=== PATIENT | female | born 1990 | race Two or more races ===

== ENCOUNTER 2017-06-23 19:04 | Emergency (ER) | payer MEDICAID ==
--- NOTE | 2017-06-23 19:55 | ER Document Report ---
ED Medical Screen (RME) - General Chief Complaint: Psych Problem Stated Complaint: SUICIDIAL IDEATION Time Seen by Provider: 06/23/17 19:50 Mode of Arrival: Ambulatory Information source: Patient TRAVEL OUTSIDE OF THE [place] IN LAST 30 DAYS: No - HPI Onset: Last week Onset/Duration: Gradual, Worse - TODAY Context: MUCH PSYCHOSOCIAL UPHEAVAL RE: CHILDREN, BEST FRIEND, ETC. Quality of pain: No pain Associated Symptoms: None Exacerbated by: Denies Relieved by: Denies Similar symptoms previously: Yes Recently seen / treated by doctor: No - Related Data Allergies/Adverse Reactions: Sulfa (Sulfonamide Antibiotics) Allergy (Verified 03/17/14 05:55) Hives Past Medical History - General Information source: Patient - Social History Chew tobacco use (# tins/day): No Frequency of alcohol use: Rare Drug Abuse: None Lives with: Homeless Family history: None - Past Medical History Cardiac Medical History: Reports: None Pulmonary Medical History: Reports: None Denies: Hx Tuberculosis EENT Medical History: Reports: None Neurological Medical History: Reports: None Endocrine Medical History: Reports: None Renal/ Medical History: Reports: Hx Kidney Stones - no stones, but cyst on kidney. Denies: Hx Peritoneal Dialysis Malignancy Medical History: Reports: None GI Medical History: Reports: None. Denies: Hx Gastroesophageal Reflux Disease, Hx Hiatal Hernia, Hx Ulcer Musculoskeltal Medical History: Reports None Psychiatric Medical History: Reports: Hx Anxiety, Hx Depression Past Surgical History: Reports: Hx Section. Denies: Hx Appendectomy, Hx Bowel Surgery, Hx Cholecystectomy, Hx Coronary Artery Bypass Graft, Hx Gastric Bypass Surgery, Hx Herniorrhaphy, Hx Hysterectomy, Hx Mastectomy, Hx Pacemaker, Hx Tonsillectomy, Hx Tubal Ligation - Immunizations Hx Diphtheria, Pertussis, Tetanus Vaccination: Yes Review of Systems - Review of Systems Constitutional: No symptoms reported EENT: No symptoms reported Cardiovascular: No symptoms reported Respiratory: No symptoms reported Gastrointestinal: No symptoms reported Genitourinary: No symptoms reported Female Genitourinary: Last menstrual period - 02/2017, - MAYBE Neurological/Psychological: See HPI Physical Exam - Vital signs Vitals: Temp Pulse Resp BP Pulse Ox 98.5 F 106 H 20 123/69 100 06/23/17 19:18 06/23/17 19:18 06/23/17 19:18 06/23/17 19:18 06/23/17 19:18 Interpretation: Tachycardic - General General appearance: Appears well In distress: None - HEENT Head: Normocephalic Eyes: Normal Conjunctiva: Normal Ears: Normal Nasal: Normal Mouth/Lips: Normal Mucous membranes: Normal Pharynx: Normal - Respiratory Respiratory status: No respiratory distress Breath sounds: Normal - Cardiovascular Rhythm: Regular Heart sounds: Normal auscultation Murmur: No - Abdominal Inspection: Normal Distension: No distension - Extremities General upper extremity: Normal inspection General lower extremity: Normal inspection - Neurological Neuro grossly intact: Yes Cognition: Normal Orientation: AAOx4 - Psychological Associated symptoms: Depressed - Skin Skin Temperature: Warm Skin Moisture: Dry Skin Color: Normal Skin Turgor: Elastic Course - Vital Signs Vital signs: Temp Pulse Resp BP Pulse Ox 98.5 F 106 H 20 123/69 100 06/23/17 19:18 06/23/17 19:18 06/23/17 19:18 06/23/17 19:18 06/23/17 19:18
[2017-06-23 20:06] LABS: ABSOLUTE BASOPHILS # (AUTO) 0.1 10^3/uL (0.0-0.2); ABSOLUTE EOSINOPHILS # (AUTO) 0.1 10^3/uL (0.0-0.6); ABSOLUTE LYMPHOCYTES (AUTO) 1.9 10^3/uL (0.5-4.7); ABSOLUTE MONOCYTES (AUTO) 0.6 10^3/uL (0.1-1.4); ABSOLUTE NEUT (AUTO) 4.4 10^3/uL (1.7-8.2); BASOPHILS % (AUTO) 0.8 % (0-2); EOSINOPHILS % (AUTO) 1.5 % (0-6); HEMATOCRIT 38.1 % (36.0-47.0); HGB HCT DIFFERENCE 0.9; LYMPHOCYTES % (AUTO) 26.4 % (13-45); MEAN CORPUSCULAR HEMOGLOBIN 31.2 pg (27.0-33.4); MEAN CORPUSCULAR HGB CONC 34.2 g/dL (32.0-36.0); MEAN CORPUSCULAR VOLUME 91 fl (80-97); RED BLOOD COUNT 4.18 10^6/uL (3.72-5.28); RED CELL DISTRIBUTION WIDTH 14.5 % (11.5-14.0); SEGMENTED NEUTROPHILS % (AUTO) 62.3 % (42-78); WHITE BLOOD COUNT 7.1 10^3/uL (4.0-10.5)
[2017-06-23 20:26] LABS: APPEARANCE,URINE SLIGHTLY-CLOUDY; BILIRUBIN,URINE NEGATIVE (NEGATIVE); GLUCOSE, URINE NEGATIVE (NEGATIVE); KETONES,URINE NEGATIVE (NEGATIVE); LEUKOCYTE ESTERASE,URINE NEGATIVE (NEGATIVE); NITRITE,URINE NEGATIVE (NEGATIVE); PROTEIN,URINE NEGATIVE (NEGATIVE); URINE SPECIFIC GRAVITY 1.028; UROBILINOGEN,URINE NEGATIVE mg/dL (<2.0)
[2017-06-23 20:32] LABS: ALANINE AMINOTRANSFERASE 23 U/L (9-52); ALBUMIN 4.2 g/dL (3.5-5.0); ALCOHOL < 10 mg/dL (NONE DETECTED); ALKALINE PHOSPHATASE 60 U/L (38-126); ANION GAP 10 (5-19); ASPARTATE AMINO TRANSFERASE 15 U/L (14-36); BILIRUBIN,DIRECT 0.3 mg/dL (0.0-0.4); BILIRUBIN,TOTAL 0.3 mg/dL (0.2-1.3); BLOOD UREA NITROGEN 5 mg/dL (7-20); CALCIUM 9.6 mg/dL (8.4-10.2); CARBON DIOXIDE 26 mmol/L (22-30); CHLORIDE 103 mmol/L (98-107); CREATININE RESULT 0.55 mg/dL (0.52-1.25); GLUCOSE 83 mg/dL (75-110); SODIUM 139.4 mmol/L (137-145); TOTAL PROTEIN 7.4 g/dL (6.3-8.2)
[2017-06-23 20:38] LABS: URINE BARBITURATES SCREEN NEGATIVE; URINE METHADONE SCREEN NEGATIVE; URINE OPIATES LOW UNCONFIRMED POSITIVE; URINE PHENCYCLIDINE SCREEN NEGATIVE
--- NOTE | 2017-06-23 23:14 | ER Document Report ---
ED General - General Chief Complaint: Psych Problem Stated Complaint: SUICIDIAL IDEATION Time Seen by Provider: 06/23/17 19:50 Mode of Arrival: Ambulatory Notes: Patient is a 27-year-old female without past medical history, has been diagnosed in the past with depression and anxiety who presents with concerns of increasing depression and passive suicidal ideation. Patient reports a long- standing history of passive suicidal ideation but states clearly "I could never actually kill myself. She has no prior attempts per her report. Relates multiple life stressors including homelessness, difficulty raising her children , and a history of prior alf time as stressors triggering her symptoms today. She has not noted anything improves her symptoms. She was referred here by [facility] after talking to her counselor. She denies any acute medical complaints although does note that she feels she is likely she has not had a menstrual period for at least 3 months. TRAVEL OUTSIDE OF THE [place] IN LAST 30 DAYS: No - Related Data Allergies/Adverse Reactions: Sulfa (Sulfonamide Antibiotics) Allergy (Verified 03/17/14 05:55) Hives Past Medical History - General Information source: Patient - Social History Smoking Status: Current Every Day Smoker Chew tobacco use (# tins/day): No Frequency of alcohol use: Rare Drug Abuse: None Lives with: Homeless Family History: Other - Cancer and hypertension Patient has suicidal ideation: Yes Patient has homicidal ideation: No - Past Medical History Cardiac Medical History: Reports: None Pulmonary Medical History: Reports: None Denies: Hx Tuberculosis EENT Medical History: Reports: None Neurological Medical History: Reports: None Endocrine Medical History: Reports: None Renal/ Medical History: Reports: Hx Kidney Stones - no stones, but cyst on kidney. Denies: Hx Peritoneal Dialysis Malignancy Medical History: Reports: None GI Medical History: Reports: None. Denies: Hx Gastroesophageal Reflux Disease, Hx Hiatal Hernia, Hx Ulcer Musculoskeltal Medical History: Reports None Psychiatric Medical History: Reports: Hx Anxiety, Hx Depression Past Surgical History: Reports: Hx Section. Denies: Hx Appendectomy, Hx Bowel Surgery, Hx Cholecystectomy, Hx Coronary Artery Bypass Graft, Hx Gastric Bypass Surgery, Hx Herniorrhaphy, Hx Hysterectomy, Hx Mastectomy, Hx Pacemaker, Hx Tonsillectomy, Hx Tubal Ligation - Immunizations Hx Diphtheria, Pertussis, Tetanus Vaccination: Yes Review of Systems - Review of Systems Notes: Constitutional: Negative for fever. HENT: Negative for sore throat. Eyes: Negative for visual changes. Cardiovascular: Negative for chest pain. Respiratory: Negative for shortness of breath. Gastrointestinal: Negative for abdominal pain, vomiting or diarrhea. Genitourinary: Negative for dysuria. Musculoskeletal: Negative for back pain. Skin: Negative for rash. Neurological: Negative for headaches, weakness or numbness. 10 point ROS negative except as marked above and in HPI. Physical Exam - Vital signs Vitals: Temp Pulse Resp BP Pulse Ox 98.5 F 106 H 20 123/69 100 06/23/17 19:18 06/23/17 19:18 06/23/17 19:18 06/23/17 19:18 06/23/17 19:18 Interpretation: Tachycardic Notes: PHYSICAL EXAMINATION: GENERAL: Well-appearing, well-nourished and in no acute distress. HEAD: Atraumatic, normocephalic. EYES: Pupils equal round and reactive to light, extraocular movements intact, sclera anicteric, conjunctiva are normal. ENT: nares patent, oropharynx clear without exudates. Moist mucous membranes. NECK: Normal range of motion, supple without lymphadenopathy LUNGS: Breath sounds clear to auscultation bilaterally and equal. No wheezes rales or rhonchi. HEART: Regular rate and rhythm without murmurs ABDOMEN: Soft, nontender, normoactive bowel sounds. No guarding, no rebound. No masses appreciated. EXTREMITIES: Normal range of motion, no pitting or edema. No cyanosis. NEUROLOGICAL: No focal neurological deficits. Moves all extremities spontaneously and on command. PSYCH: Tearful, depressed mood. Insight is appropriate. Judgment is fair. Denies suicidal or homicidal ideation. Does not be repaired to be responding to internal stimuli. SKIN: Warm, Dry, normal turgor, no rashes or lesions noted. Course - Re-evaluation Re-evalutation: 06/23/17 23:10 Patient presents with increased depression, anxiety, intermittent passive suicidal ideation although she states very clearly "I could never actually follow through with it". Patient does follow with [facility] [facility] and was referred to the emergency department for psychiatric evaluation based on what she spoke to her counselor about today. Patient presents as depressed, tearful but with excellent insight and judgment. She notes her children are preserving factors that would preclude her from ever harming herself in any serious way. She does not meet involuntary commitment criteria although she has requested to stay and be evaluated psychiatry in the morning which I believe is appropriate. She has no acute medical concerns. 06/24/17 02:48 Patient's laboratories are normal with the exception of a positive test which patient reports that she was anticipating as she has not had a menstrual period for at least 3 months. There is no indication to obtain ultrasound here in the emergency department as she has no abdominal pain vaginal bleeding or discharge. She has been informed of this positive test and the need for OB follow-up. - Vital Signs Vital signs: Temp Pulse Resp BP Pulse Ox 98.5 F 106 H 20 123/69 100 06/23/17 19:18 06/23/17 19:18 06/23/17 19:18 06/23/17 19:18 06/23/17 19:18 - Laboratory Result Diagrams: 06/23/17 19:50 06/23/17 19:50 Laboratory results interpreted by me: 06/23/17 06/23/17 06/23/17 19:24 19:24 19:50 RDW 14.5 H BUN Urine Ascorbic Acid 40 H Urine HCG, Qual POSITIVE H Salicylates Acetaminophen 06/23/17 19:50 RDW BUN 5 L Urine Ascorbic Acid Urine HCG, Qual Salicylates < 1.0 L Acetaminophen < 10 L - EKG Interpretation by Me Additional EKG results interpreted by me: 06/24/17 02:50 Normal sinus rhythm. Rate 91. No ST elevations or depressions. QTC is 424.
--- NOTE | 2017-06-24 14:10 | ER Document Report ---
Addendum entered and electronically signed by SULEIMAN PINTO LCSWA 06/26/17 13: 45: ED Psych Disorder / Suicide - General Chief Complaint: Psych Problem Stated Complaint: SUICIDIAL IDEATION Time Seen by Provider: 06/23/17 19:50 Mode of Arrival: Ambulatory TRAVEL OUTSIDE OF THE [place] IN LAST 30 DAYS: No - HPI Notes: Patient states that she has not been to the doctor yet for her however in the [facility]. She thinks she has to go to the health department first before she can go to [facility]. He states her aunt is willing to allow her to stay with her. Patient's Aunt, Margaret states she is willing to be part of the discharge plan. She confirms the patient will not have access to either weapons or medications. She states that she does have a concealed carry however her gun is in the face patient does not have access by either he nor code. She continued disclosed that she is on pain medication and has always had a lot things up because of the patient's substance abuse history she states the patient is welcome to stay with her however she will notify the patient's therapist immediately if she feels the patient is not following through. Impression\\plan: Patient is recommended for rescind of IVC and is considered psychiatrically clear for discharge. Patient no longer meets IVC criteria per [place] GS 122C. Patient's aunt agrees to be part of discharge plan. Patient is to have no access to weapons or medications. patient recommended to continue outpatient substance abuse treatment through [facility]. Patient is also recommended for therapeutic intervention to include behavioral therapy. - Related Data Allergies/Adverse Reactions: Sulfa (Sulfonamide Antibiotics) Allergy (Verified 03/17/14 05:55) Hives Discharge - Discharge Clinical Impression: Substance abuse, 12 weeks gestation of Depression Qualifiers: Depression Type: unspecified Qualified Code(s): F32.9 - Major depressive disorder, single episode, unspecified Condition: Stable Disposition: HOME, SELF-CARE Additional Instructions: NARCOTIC / OPIOD ABUSE: Narcotics and opiods are pain-relieving drugs that are often abused. They are addicting. Narcotics cause euphoria, but it often takes increasing amounts to "feel good" and avoid withdrawal symptoms. Overdose of narcotics causes small pupils, coma, and decreased breathing. It's a common cause of . Purity of street narcotics is unpredictable. Injection of narcotics is risky for abscesses, endocarditis (heart infection), pneumonia, and AIDS. Withdrawal from narcotics causes goose bumps, watery mouth, sweating, nasal congestion, muscle aches, abdominal cramps, vomiting, and diarrhea. There 's often restlessness and confusion. Treatment programs are available, but you must make the decision to quit. Medication (such as clonidine) can be prescribed to control the symptoms of withdrawal. AMPHETAMINE / METHAMPHETAMINE ABUSE: Amphetamines are addicting stimulants. Amphetamines overstimulate the nervous system and give a false feeling of power and mastery. These drugs may be obtained as prescription pills for weight loss, narcolepsy, or attention- deficit disorder. More often they're bought as an illegal street drug, methamphetamine (crank, crystal, speed). Using amphetamines repeatedly can lead to serious medical problems including malnutrition, severe depression, and paranoia. It can take increasing amounts to feel good. Eventually, there will be a "burn out." When you go off amphetamines there is a period of depression that may last for weeks or even months. High doses of amphetamines can cause seizures, confusion, hallucinations, delusions, high blood pressure, muscle damage, heart damage, or sudden . Many times these deadly complications occur even with "normal" doses. Injection of amphetamines is risky for developing abscesses, endocarditis ( heart infection), pneumonia, and AIDS. Withdrawal from amphetamines often causes anxiety, depression, and drug cravings. Some users become paranoid and psychotic. There may be cramps, nausea , and vomiting. Many treatment programs are available, but you must make the decision to quit. Medication can be prescribed to control the symptoms of amphetamine toxicity (beta blockers or benzodiazepines). Withdrawal symptoms may require tranquilizers. DEPRESSION: Your evaluation reveals that you have mental depression. While symptoms may be vague, they often include disturbance of sleep, fatigue, loss of appetite , and general loss of interest in life. While depression may be a side effect of drugs, or a reaction to a major change in your life, many cases have no known cause. If depression is acute, and related to a major loss in your life, you can expect it to clear completely with time. If you have been depressed a long time , are prone to repeated bouts of depression or low mood, or have been thinking of suicide, get help. Depression can be treated with anti-depressant medication and counselling. Long-term depression will often take a few weeks to clear, even with appropriate medication. Follow-up care is important. SUICIDAL IDEATION: Suicidal ideation is a common medical term for thoughts about suicide, which may be as detailed as a formulated plan, without the suicidal act itself. Although most people who undergo suicidal ideation do not commit suicide, some go on to make suicide attempts. The range of suicidal ideation varies greatly from fleeting to detailed planning, role playing, and unsuccessful attempts. While thoughts about suicide are common, most people do not carry out serious actions to commit suicide. Based upon your evaluation and discussion with you, we do not believe you are currently at risk to act upon your thoughts of suicide. You have agreed to return to the Emergency Department, at any time , if you feel inclined to act upon your suicidal thoughts. FOLLOW-UP CARE: Please continue to follow-up with your substance abuse treatment through [facility]. It is also recommended to follow-up with therapeutic services for behavioral therapy; please contact [facility] within 3-5 days to set up appointment. Please follow-up with the health department tomorrow morning at 8 AM. if you experience worsening or a significant change in your symptoms, notify the physician immediately or return to the Emergency Department at any time for re-evaluation. Referrals: [facility] [Outside] - Follow up in 3-5 days Addendum entered and electronically signed by GURMEET FELIPE LPC 06/25/17 13: 29: ED Psych Disorder / Suicide - General Chief Complaint: Psych Problem Stated Complaint: SUICIDIAL IDEATION Time Seen by Provider: 06/23/17 19:50 Mode of Arrival: Ambulatory TRAVEL OUTSIDE OF THE [place] IN LAST 30 DAYS: No - HPI Notes: Conducted check in with patient who is a 27 year old 12 week female who is under IVC for SI. Patient today states she is no longer suicidal, but is tearful etc. Patient states she presented to her group session at [facility], and asked to speak with an individual therapist due to SI. Patient states she disclosed the SI and her therapist prompted her to present to the ER, and also to find someone to care for her kids or else dss would take them. Patient states that is why she signed the POA to her aunt. Patient states she, her boyfriend, and their children were residing with a friend's family; however, she has since learned since being admitted to the ER, that her family has gone to that home and removed all of her belongings. Patient states her boyfriend did the same. She states she has not talked to the regional owner operator truck driver of the home and is unsure of why she is not welcomed there. Patient states she wants to go home and wants to be with her children. Patient denies SI/HI. Patient does provide verbal consent to speak with her aunt. Patient's Aunt, Margaret states the patient is "very, very, very depressed and her life revolves around her baby daddy." Aunt reports the patient 's mother left and has limited supports. She states every time the baby daddy leaves to go do something, she wants to harm herself. Aunt states the patient is able to come stay there, but the boyfriend is not. Aunt reports the patient has threatened suicide numerous times, each time related to the boyfriend, and the family is "over it." Patient is A&O. Mood is labile wit mostly tearful affect. Patient denies SI.HI. Patient denies A/V H; delusions not noted. Thought processes were guarded. Conversational speech was WNL. Intellectual abilities were estimated within average range. Attention and focus were fair. Insight, judgment, and impulse control were poor. 296.32 Major Depression, recurrent, moderate polysubstance abuse; with resent relapse Plan: Patient is recommended for IVC and placement at 24 hour inpatient facility. Patient has history of previous suicide attempt and disclosed attempting night. Patient has made arrangements for her children; providing written power of deputy county attorney to her aunt and requested her aunt to care for her children. Patient is tearful and labile. Patient has altered her story in regards to her boyfriend and etiology of her SI, thus causing concern for her judgment and decision making ability (impulsive) and the safety of her and her children. Dr. Wang was consulted on the care and management of this patient; attending physician is in agreement with recommendations and disposition. - Related Data Allergies/Adverse Reactions: Sulfa (Sulfonamide Antibiotics) Allergy (Verified 03/17/14 05:55) Hives Original Note: ED Psych Disorder / Suicide <MICHEAL FELIPEBETH - Last Filed: 06/25/17 12:54> - General Mode of Arrival: Ambulatory TRAVEL OUTSIDE OF THE [place] IN LAST 30 DAYS: No <SULEIMAN PINTO - Last Filed: 06/26/17 13:29> <KAVON JOHN - Last Filed: 06/26/17 13:59> - General Chief Complaint: Psych Problem Stated Complaint: SUICIDIAL IDEATION Time Seen by Provider: 06/23/17 19:50 - HPI Notes: Patient is a 27-year-old female without past medical history, has been diagnosed in the past with depression and anxiety who presents with concerns of increasing depression and passive suicidal ideation. Patient reports a long- standing history of passive suicidal ideation but states clearly "I could never actually kill myself." She has no prior attempts per her report. Chart review, Patient disclosed to intake staff: Pt. reports SI, tried to inject air into her veins last night, used to be IV drug user. Pt. reports emotional problems with boyfriend. Pt. has tried suicide in the past, has DX of anxiety and depression not taking any meds. Clinician conducted Evaluation 06/24/2017: Patient disclosed that she was at her group meeting at [facility] and requested to speak with a therapist individually. She continued disclosed that she has been depressed and having suicidal thoughts lately. Patient states her significant other and her are currently arguing. She continued to state that she did have a relapse a couple of days ago in her substance abuse treatment. Patient states that she is always had suicidal ideation in that happens so frequently that her "family does not de la garza over" to her anymore when she says it. She states it is "like the cry alvarez thing but I really am depressed and miserable." Patient denies having a plan stating "I would never do it." She states she is too scared to leave and not come back patient continues states that she is concerned about leaving her children. States "I am sad I need someone to reassure me everything is going to be okay." Patient past suicidal attempts to clinician however when asked again patient states she took caffeine pills in 2013 and has thought about cutting when she was a teenager but denies ever doing this. Patient disclosed she provided a temporary power of deputy county attorney to her aunt last night; the patient states it is for the custody of 3 children. Patient was alert and oriented x4. Mood was crying and severely depressed. She denied suicidal / homicidal ideation, intent or plan; however, it is noted the patient has planed and executed plan for care of her 3 children. She denied symptoms of psychosis and no delusions were present. Thought processes were organized, linear and rational. Conversational speech was within normal limits for rate, tone, and prosody. Intellectual abilities were estimated within normal range. Memory, recent and remote were within normal limits. Attention and concentration were within normal limits. Insight, judgment, and impulse control were poor. 296.32 Major Depression, recurrent, moderate polysubstance abuse; with resent relapse Plan: Patient is recommended for IVC and placement at 24 hour inpatient facility. Patient has history of previous suicide attempt and disclosed attempting last night. Patient has made arrangements for her children; providing written power of deputy county attorney to her aunt and requested her aunt to care for her children. Dr. Wang was consulted on the care and management of this patient; attending physician is in agreement with recommendations and disposition. (SULEIMAN PINTO) - Related Data Allergies/Adverse Reactions: Sulfa (Sulfonamide Antibiotics) Allergy (Verified 03/17/14 05:55) Hives Past Medical History - General Information source: Patient - Social History Smoking Status: Current Every Day Smoker Chew tobacco use (# tins/day): No Frequency of alcohol use: Rare Drug Abuse: None Lives with: Homeless Family History: Other - Cancer and hypertension Patient has suicidal ideation: Yes Patient has homicidal ideation: No - Past Medical History Cardiac Medical History: Reports: None Pulmonary Medical History: Reports: None Denies: Hx Tuberculosis EENT Medical History: Reports: None Neurological Medical History: Reports: None Endocrine Medical History: Reports: None Renal/ Medical History: Reports: Hx Kidney Stones - no stones, but cyst on kidney. Denies: Hx Peritoneal Dialysis Malignancy Medical History: Reports: None GI Medical History: Reports: None. Denies: Hx Gastroesophageal Reflux Disease, Hx Hiatal Hernia, Hx Ulcer Musculoskeltal Medical History: Reports None Psychiatric Medical History: Reports: Hx Anxiety, Hx Depression Past Surgical History: Reports: Hx Section. Denies: Hx Appendectomy, Hx Bowel Surgery, Hx Cholecystectomy, Hx Coronary Artery Bypass Graft, Hx Gastric Bypass Surgery, Hx Herniorrhaphy, Hx Hysterectomy, Hx Mastectomy, Hx Pacemaker, Hx Tonsillectomy, Hx Tubal Ligation - Immunizations Hx Diphtheria, Pertussis, Tetanus Vaccination: Yes <SULEIMAN PINTO - Last Filed: 06/26/17 13:29> Course <GURMEET FELIPE - Last Filed: 06/25/17 12:54> - Laboratory Result Diagrams: 06/23/17 19:50 06/23/17 19:50 <SULEIMAN PINTO - Last Filed: 06/26/17 13:29> - Laboratory Result Diagrams: 06/23/17 19:50 06/23/17 19:50 <KAVON JOHN - Last Filed: 06/26/17 13:59> - Re-evaluation Re-evalutation: 06/26/17 13:58 Patient has had the IVC rescinded. Patient is no longer suicidal and no longer meets criteria for commitment. Patient is going to go home with aunt and aunt has agreed to allow patient to live with her and will assist in the patient's care and follow-up. (KAVON JOHN) - Vital Signs Vital signs: Temp Pulse Resp BP Pulse Ox 97.9 F 89 16 111/61 99 06/26/17 08:25 06/26/17 08:25 06/26/17 08:25 06/26/17 08:25 06/26/17 08:25 - Laboratory Laboratory results interpreted by me: 06/23/17 06/23/17 06/23/17 19:24 19:24 19:50 RDW 14.5 H BUN Urine Ascorbic Acid 40 H Urine HCG, Qual POSITIVE H Salicylates Acetaminophen 06/23/17 19:50 RDW BUN 5 L Urine Ascorbic Acid Urine HCG, Qual Salicylates < 1.0 L Acetaminophen < 10 L Discharge <GURMEET FELIPE - Last Filed: 06/25/17 12:54> <SULEIMAN PINTO - Last Filed: 06/26/17 13:29> <KAVON JOHN - Last Filed: 06/26/17 13:59> - Discharge Clinical Impression: Substance abuse, 12 weeks gestation of Depression Qualifiers: Depression Type: unspecified Qualified Code(s): F32.9 - Major depressive disorder, single episode, unspecified Condition: Stable Disposition: HOME, SELF-CARE Additional Instructions: NARCOTIC / OPIOD ABUSE: Narcotics and opiods are pain-relieving drugs that are often abused. They are addicting. Narcotics cause euphoria, but it often takes increasing amounts to "feel good" and avoid withdrawal symptoms. Overdose of narcotics causes small pupils, coma, and decreased breathing. It's a common cause of . Purity of street narcotics is unpredictable. Injection of narcotics is risky for abscesses, endocarditis (heart infection), pneumonia, and AIDS. Withdrawal from narcotics causes goose bumps, watery mouth, sweating, nasal congestion, muscle aches, abdominal cramps, vomiting, and diarrhea. There 's often restlessness and confusion. Treatment programs are available, but you must make the decision to quit. Medication (such as clonidine) can be prescribed to control the symptoms of withdrawal. AMPHETAMINE / METHAMPHETAMINE ABUSE: Amphetamines are addicting stimulants. Amphetamines overstimulate the nervous system and give a false feeling of power and mastery. These drugs may be obtained as prescription pills for weight loss, narcolepsy, or attention- deficit disorder. More often they're bought as an illegal street drug, methamphetamine (crank, crystal, speed). Using amphetamines repeatedly can lead to serious medical problems including malnutrition, severe depression, and paranoia. It can take increasing amounts to feel good. Eventually, there will be a "burn out." When you go off amphetamines there is a period of depression that may last for weeks or even months. High doses of amphetamines can cause seizures, confusion, hallucinations, delusions, high blood pressure, muscle damage, heart damage, or sudden . Many times these deadly complications occur even with "normal" doses. Injection of amphetamines is risky for developing abscesses, endocarditis ( heart infection), pneumonia, and AIDS. Withdrawal from amphetamines often causes anxiety, depression, and drug cravings. Some users become paranoid and psychotic. There may be cramps, nausea , and vomiting. Many treatment programs are available, but you must make the decision to quit. Medication can be prescribed to control the symptoms of amphetamine toxicity (beta blockers or benzodiazepines). Withdrawal symptoms may require tranquilizers. DEPRESSION: Your evaluation reveals that you have mental depression. While symptoms may be vague, they often include disturbance of sleep, fatigue, loss of appetite , and general loss of interest in life. While depression may be a side effect of drugs, or a reaction to a major change in your life, many cases have no known cause. If depression is acute, and related to a major loss in your life, you can expect it to clear completely with time. If you have been depressed a long time , are prone to repeated bouts of depression or low mood, or have been thinking of suicide, get help. Depression can be treated with anti-depressant medication and counselling. Long-term depression will often take a few weeks to clear, even with appropriate medication. Follow-up care is important. SUICIDAL IDEATION: Suicidal ideation is a common medical term for thoughts about suicide, which may be as detailed as a formulated plan, without the suicidal act itself. Although most people who undergo suicidal ideation do not commit suicide, some go on to make suicide attempts. The range of suicidal ideation varies greatly from fleeting to detailed planning, role playing, and unsuccessful attempts. While thoughts about suicide are common, most people do not carry out serious actions to commit suicide. Based upon your evaluation and discussion with you, we do not believe you are currently at risk to act upon your thoughts of suicide. You have agreed to return to the Emergency Department, at any time , if you feel inclined to act upon your suicidal thoughts. FOLLOW-UP CARE: Please continue to follow-up with your substance abuse treatment through [facility]. It is also recommended to follow-up with therapeutic services for behavioral therapy; please contact [facility] within 3-5 days to set up appointment. Please follow-up with the health department tomorrow morning at 8 AM. if you experience worsening or a significant change in your symptoms, notify the physician immediately or return to the Emergency Department at any time for re-evaluation. Referrals: [facility] [Outside] - Follow up in 3-5 days Discharge <GURMEET FELIPE - Last Filed: 06/25/17 12:54> <SULEIMAN PINTO - Last Filed: 06/26/17 13:29> <KAVON JOHN - Last Filed: 06/26/17 13:59> - Discharge Clinical Impression: Substance abuse, 12 weeks gestation of Depression Qualifiers: Depression Type: unspecified Qualified Code(s): F32.9 - Major depressive disorder, single episode, unspecified Condition: Stable Disposition: HOME, SELF-CARE Additional Instructions: NARCOTIC / OPIOD ABUSE: Narcotics and opiods are pain-relieving drugs that are often abused. They are addicting. Narcotics cause euphoria, but it often takes increasing amounts to "feel good" and avoid withdrawal symptoms. Overdose of narcotics causes small pupils, coma, and decreased breathing. It's a common cause of . Purity of street narcotics is unpredictable. Injection of narcotics is risky for abscesses, endocarditis (heart infection), pneumonia, and AIDS. Withdrawal from narcotics causes goose bumps, watery mouth, sweating, nasal congestion, muscle aches, abdominal cramps, vomiting, and diarrhea. There 's often restlessness and confusion. Treatment programs are available, but you must make the decision to quit. Medication (such as clonidine) can be prescribed to control the symptoms of withdrawal. AMPHETAMINE / METHAMPHETAMINE ABUSE: Amphetamines are addicting stimulants. Amphetamines overstimulate the nervous system and give a false feeling of power and mastery. These drugs may be obtained as prescription pills for weight loss, narcolepsy, or attention- deficit disorder. More often they're bought as an illegal street drug, methamphetamine (crank, crystal, speed). Using amphetamines repeatedly can lead to serious medical problems including malnutrition, severe depression, and paranoia. It can take increasing amounts to feel good. Eventually, there will be a "burn out." When you go off amphetamines there is a period of depression that may last for weeks or even months. High doses of amphetamines can cause seizures, confusion, hallucinations, delusions, high blood pressure, muscle damage, heart damage, or sudden . Many times these deadly complications occur even with "normal" doses. Injection of amphetamines is risky for developing abscesses, endocarditis ( heart infection), pneumonia, and AIDS. Withdrawal from amphetamines often causes anxiety, depression, and drug cravings. Some users become paranoid and psychotic. There may be cramps, nausea , and vomiting. Many treatment programs are available, but you must make the decision to quit. Medication can be prescribed to control the symptoms of amphetamine toxicity (beta blockers or benzodiazepines). Withdrawal symptoms may require tranquilizers. DEPRESSION: Your evaluation reveals that you have mental depression. While symptoms may be vague, they often include disturbance of sleep, fatigue, loss of appetite , and general loss of interest in life. While depression may be a side effect of drugs, or a reaction to a major change in your life, many cases have no known cause. If depression is acute, and related to a major loss in your life, you can expect it to clear completely with time. If you have been depressed a long time , are prone to repeated bouts of depression or low mood, or have been thinking of suicide, get help. Depression can be treated with anti-depressant medication and counselling. Long-term depression will often take a few weeks to clear, even with appropriate medication. Follow-up care is important. SUICIDAL IDEATION: Suicidal ideation is a common medical term for thoughts about suicide, which may be as detailed as a formulated plan, without the suicidal act itself. Although most people who undergo suicidal ideation do not commit suicide, some go on to make suicide attempts. The range of suicidal ideation varies greatly from fleeting to detailed planning, role playing, and unsuccessful attempts. While thoughts about suicide are common, most people do not carry out serious actions to commit suicide. Based upon your evaluation and discussion with you, we do not believe you are currently at risk to act upon your thoughts of suicide. You have agreed to return to the Emergency Department, at any time , if you feel inclined to act upon your suicidal thoughts. FOLLOW-UP CARE: Please continue to follow-up with your substance abuse treatment through [facility]. It is also recommended to follow-up with therapeutic services for behavioral therapy; please contact [facility] within 3-5 days to set up appointment. Please follow-up with the health department tomorrow morning at 8 AM. if you experience worsening or a significant change in your symptoms, notify the physician immediately or return to the Emergency Department at any time for re-evaluation. Referrals: [facility] [Outside] - Follow up in 3-5 days
--- NOTE | 2017-06-24 15:19 | EKG REPORT ---
SEVERITY:- NORMAL ECG - SINUS RHYTHM : Confirmed by: Lauren Soto MD 24-Jun-2017 15:18:00
--- NOTE | 2017-06-24 20:45 | RADIOLOGY REPORT (SQ) ---
EXAM DESCRIPTION: U/S OB TRANSVAGINAL W/O DOP COMPLETED DATE/TIME: 06/24/2017 8:23 pm REASON FOR STUDY: confirmation positive preg COMPARISON: None. TECHNIQUE: Transvaginal static and realtime grayscale images acquired of the pelvis. Additional aide cted spectral and color Doppler images recorded. All images stored on PACs. bHCG: Not available. LIMITATIONS: None. FINDINGS: FETUS: Living intrauterine . EGA: 12 WEEKS, 2 DAYS STEVEN: 01/04/2018 FHR: 152 beats per minute. SUBCHORIONIC BLEED: NO SIZE OF BLEED: Not applicable. UTERUS: No masses. No anomalies. CERVICAL LENGTH: 4.2 CM Closed. RIGHT ADNEXA: Ovary not identified. No adnexal free fluid. No adnexal masses. LEFT ADNEXA: Ovary not identified. No adnexal free fluid. No adnexal masses. FREE FLUID: None. OTHER: No other significant finding. IMPRESSION: LIVING INTRAUTERINE . EGA 12 WEEKS, 2 DAYS Trimester of : First - 0 to 13 weeks. TECHNICAL DOCUMENTATION: JOB ID: [id number] [employer]- All Rights Reserved
[2017-06-24] MEDS: PRENATAL VITAMIN W-O CA NO5/FE FUMARATE/FA CAPSULE PO SCH (21:20)
--- NOTE | 2017-06-25 10:11 | ER Document Report ---
Doctor's Note Notes: 06/25/17 10:10 Patient sleeping comfortably, easily aroused, denies any needs at present time, chart was reviewed including lab and imaging findings, patient is noted to be approximately 12 weeks , she continues to deny any suicidal thoughts or plan 06/25/17 15:29 mental health team has made recommendations to hold patient for 1 more day so that discharge planning can appropriately be made during the week when services are available
[2017-06-25] MEDS: PRENATAL VITAMIN W-O CA NO5/FE FUMARATE/FA CAPSULE PO SCH (22:43)
[2017-06-26 15:36] VITALS: BP 102/67
== END 2017-06-26 15:45 | disposition home or self-care (01) ==
LOC: ER 19:04
DX: O99.341 Other mental disorders complicating pregnancy, first trimester (principal); F32.9 Major depressive disorder, single episode, unspecified; O99.321 Drug use complicating pregnancy, first trimester; F19.10 Other psychoactive substance abuse, uncomplicated; O26.891 Other specified pregnancy related conditions, first trimester; R00.0 Tachycardia, unspecified; Z3A.12 12 weeks gestation of pregnancy; Z91.5 Personal history of self-harm; Z59.0 Homelessness; Z88.2 Allergy status to sulfonamides
CPT/HCPCS: 93005; 99285; 36415; 80307 ×4; 85025; 81025; 80053; 81001; 76817; 93010; J3490 ×2

== ENCOUNTER 2017-08-08 11:43 | Emergency (ER) | payer SELFPAY ==
[2017-08-08 11:52] VITALS: BP 121/67
--- NOTE | 2017-08-08 12:01 | ER Document Report ---
ED Medical Screen (RME) - General Chief Complaint: Vag Bleeding, +preg <12wks Stated Complaint: CRAMPING AND SPOTTING Time Seen by Provider: 08/08/17 11:59 Notes: Patient presents stating she is having abdominal cramping and bleeding. She states she believes she is 19 weeks . She states she has not had care. Patient denies any chronic medical conditions. TRAVEL OUTSIDE OF THE [place] IN LAST 30 DAYS: No - Related Data Allergies/Adverse Reactions: Sulfa (Sulfonamide Antibiotics) Allergy (Verified 08/08/17 11:52) Hives Past Medical History - Social History Family history: None Pulmonary Medical History: Denies: Hx Tuberculosis Renal/ Medical History: Reports: Hx Kidney Stones - no stones, but cyst on kidney. Denies: Hx Peritoneal Dialysis GI Medical History: Denies: Hx Gastroesophageal Reflux Disease, Hx Hiatal Hernia , Hx Ulcer Psychiatric Medical History: Reports: Hx Anxiety, Hx Depression Past Surgical History: Reports: Hx Section. Denies: Hx Appendectomy, Hx Bowel Surgery, Hx Cholecystectomy, Hx Coronary Artery Bypass Graft, Hx Gastric Bypass Surgery, Hx Herniorrhaphy, Hx Hysterectomy, Hx Mastectomy, Hx Pacemaker, Hx Tonsillectomy, Hx Tubal Ligation - Immunizations Hx Diphtheria, Pertussis, Tetanus Vaccination: Yes Physical Exam - Vital signs Vitals: Temp Pulse Resp BP Pulse Ox 98.6 F 110 H 18 121/67 100 08/08/17 11:49 08/08/17 11:49 08/08/17 11:49 08/08/17 11:49 08/08/17 11:49 Course - Vital Signs Vital signs: Temp Pulse Resp BP Pulse Ox 98.6 F 110 H 18 121/67 100 08/08/17 11:49 08/08/17 11:49 08/08/17 11:49 08/08/17 11:49 08/08/17 11:49
[2017-08-08 12:49] LABS: ABSOLUTE BASOPHILS # (AUTO) 0.1 10^3/uL (0.0-0.2); ABSOLUTE LYMPHOCYTES (AUTO) 1.8 10^3/uL (0.5-4.7); ABSOLUTE MONOCYTES (AUTO) 0.6 10^3/uL (0.1-1.4); ABSOLUTE NEUT (AUTO) 10.8 10^3/uL (1.7-8.2); BASOPHILS % (AUTO) 0.5 % (0-2); EOSINOPHILS % (AUTO) 0.3 % (0-6); HEMATOCRIT 36.1 % (36.0-47.0); HEMOGLOBIN 12.3 g/dL (12.0-15.5); HGB HCT DIFFERENCE 0.8; LYMPHOCYTES % (AUTO) 13.4 % (13-45); MEAN CORPUSCULAR HEMOGLOBIN 30.7 pg (27.0-33.4); MEAN CORPUSCULAR HGB CONC 34.1 g/dL (32.0-36.0); MEAN CORPUSCULAR VOLUME 90 fl (80-97); MONOCYTES % (AUTO) 4.8 % (3-13); WHITE BLOOD COUNT 13.3 10^3/uL (4.0-10.5)
[2017-08-08 12:57] LABS: APPEARANCE,URINE SLIGHTLY-CLOUDY; BILIRUBIN,URINE NEGATIVE (NEGATIVE); GLUCOSE, URINE NEGATIVE (NEGATIVE); KETONES,URINE TRACE mg/dL (NEGATIVE); LEUKOCYTE ESTERASE,URINE TRACE (NEGATIVE); NITRITE,URINE NEGATIVE (NEGATIVE); PROTEIN,URINE NEGATIVE (NEGATIVE); URINE SPECIFIC GRAVITY 1.019; UROBILINOGEN,URINE NEGATIVE mg/dL (<2.0)
--- NOTE | 2017-08-08 13:14 | ER Document Report ---
ED GI/ - General Chief Complaint: Vag Bleeding, +preg <12wks Stated Complaint: CRAMPING AND SPOTTING Time Seen by Provider: 08/08/17 11:59 Notes: patient is a 18-1/2 week female who admits to abdominal cramping and vaginal spotting when she wipes which she noticed today. 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 Patient states that she does have a history of drug abuse. 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 Patient states that she is very stressed and she came to the emergency department due to her abdominal pain. Patient far along in her but has not had any care. Patient states that [facility] that she has an outstanding bill. TRAVEL OUTSIDE OF THE [place] IN LAST 30 DAYS: No - Related Data Allergies/Adverse Reactions: Sulfa (Sulfonamide Antibiotics) Allergy (Verified 08/08/17 13:22) Hives Past Medical History - Social History Smoking Status: Smoker,Current Status Unk Family History: Other - Cancer and hypertension Pulmonary Medical History: Denies: Hx Tuberculosis Renal/ Medical History: Reports: Hx Kidney Stones - no stones, but cyst on kidney. Denies: Hx Peritoneal Dialysis GI Medical History: Denies: Hx Gastroesophageal Reflux Disease, Hx Hiatal Hernia , Hx Ulcer Psychiatric Medical History: Reports: Hx Anxiety, Hx Depression Past Surgical History: Reports: Hx Section. Denies: Hx Appendectomy, Hx Bowel Surgery, Hx Cholecystectomy, Hx Coronary Artery Bypass Graft, Hx Gastric Bypass Surgery, Hx Herniorrhaphy, Hx Hysterectomy, Hx Mastectomy, Hx Pacemaker, Hx Tonsillectomy, Hx Tubal Ligation - Immunizations Hx Diphtheria, Pertussis, Tetanus Vaccination: Yes Review of Systems - Review of Systems Notes: REVIEW OF SYSTEMS: CONSTITUTIONAL : Denies fever, chills, or sweats. Denies recent illness. EENT: Denies eye, ear, throat, or mouth pain or symptoms. Denies nasal or sinus congestion or discharge. Denies throat, tongue, or mouth swelling or difficulty swallowing. CARDIOVASCULAR: Denies chest pain. Denies palpitations or racing or irregular heart beat. Denies ankle edema. RESPIRATORY: Denies cough, cold, or chest congestion. Denies shortness of breath, difficulty breathing, or wheezing. GASTROINTESTINAL: Denies abdominal pain or distention. Denies nausea, vomiting , or diarrhea. Denies blood in vomitus, stools, or per rectum. Denies black, tarry stools. Denies constipation. GENITOURINARY: Denies difficulty urinating, painful urination, burning, frequency, blood in urine, or discharge. FEMALE GENITOURINARY: Denies heavy or abnormal periods, irregular periods. Denies vaginal discharge or odor. MUSCULOSKELETAL: Denies any muscle spasms, difficulty walking, extremity pain SKIN: Denies rash, lesions or sores. HEMATOLOGIC : Denies easy bruising or bleeding. LYMPHATIC: Denies swollen, enlarged glands. NEUROLOGICAL: Denies confusion or altered mental status. Denies passing out or loss of consciousness. Denies dizziness or lightheadedness. Denies headache. Denies weakness or paralysis or loss of use of either side. Denies problems with gait or speech. Denies sensory loss, numbness, or tingling. Denies seizures. PSYCHIATRIC: Denies anxiety or stress. Denies depression, suicidal ideation, or homicidal ideation. ALL OTHER SYSTEMS REVIEWED AND NEGATIVE. Dictation was performed using [employer] voice recognition software Physical Exam - Vital signs Vitals: Temp Pulse Resp BP Pulse Ox 98.6 F 110 H 18 121/67 100 08/08/17 11:49 08/08/17 11:49 08/08/17 11:49 08/08/17 11:49 08/08/17 11:49 - Notes Notes: PHYSICAL EXAM GENERAL: Alert, interacts well. HEAD: Normocephalic, atraumatic. EYES: Pupils equal, round, and reactive to light. Extraocular movements intact. ENT: Oral mucosa moist, tongue midline. NECK: Full range of motion. Supple. Trachea midline. LUNGS: Clear to auscultation bilaterally, no wheezes, rales, or rhonchi. No respiratory distress. HEART: Regular rate and rhythm. No murmurs, gallops, or rubs. ABDOMEN: Soft, nondistended, nontender. No guarding, rebound, or rigidity.. Bowel sounds present in all 4 quadrants. EXTREMITIES: Moves all 4 extremities spontaneously. No edema, radial and dorsalis pedis pulses 2/4 bilaterally. No cyanosis. NEUROLOGICAL: Alert and oriented x4. Normal speech. PSYCH: Normal affect, normal mood. SKIN: Warm, dry, normal turgor. No rashes or lesions noted. Course - Re-evaluation Re-evalutation: 08/08/17 12:309:24 Patient is a 27-year-old female is hemodynamically stable, no acute distress afebrile. CBC without any evidence of leukocytosis or anemia. No evidenc on CMP for electrolyte abnormalities, hepatic/pancreatic,/renal dysfunction urinalysis without any evidence of infection. Patient declining female exam. Ultrasound shows evidence of a healthy 18/2 week without any evidence of distress, subchorionic bleeds or placenta previa. 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 Patient agrees with plan. - Vital Signs Vital signs: Temp Pulse Resp BP Pulse Ox 98.6 F 110 H 18 121/67 100 08/08/17 11:49 08/08/17 11:49 08/08/17 11:49 08/08/17 11:49 08/08/17 11:49 - Laboratory Result Diagrams: 08/08/17 12:17 08/08/17 12:17 Laboratory results interpreted by me: 08/08/17 08/08/17 08/08/17 12:17 12:17 12:17 WBC 13.3 H Seg Neutrophils % 81.0 H Absolute Neutrophils 10.8 H Potassium 3.2 L BUN 6 L Creatinine 0.43 L Glucose 69 L Urine Ketones TRACE H Ur Leukocyte Esterase TRACE H - Diagnostic Test Radiology reviewed: Reports reviewed Discharge - Discharge Clinical Impression: Abdominal cramping Qualifiers: Weeks of gestation: 18 weeks Qualified Code(s): Z3A.18 - 18 weeks gestation of Condition: Good Disposition: HOME, SELF-CARE Additional Instructions: : You are . care is best started as early in as possible. If you're unsure about continuing this , you should discuss this with your physician or with textile scrap salvager at [facility]. You should take only medications approved by your physician. Acetaminophen can safely be taken for minor pains. As a rule, medication for chronic conditions such as asthma or seizures can safely be continued. You should discuss with the physician every medicine you take. Any regular exercise program can be continued. Talk to your physician, however, before engaging in competitive or demanding sports. Alcohol, smoking, and "street drugs" are dangerous to your baby. Cocaine is especially dangerous. Don't use any illicit drugs! FOLLOW-UP CARE: If you have been referred to a physician for follow-up care, call the physician s office for an appointment as you were instructed or within the next two days. If you experience worsening or a significant change in your symptoms (very heavy bleeding with large clots of blood, passage of tissue, more severe abdominal / pelvic pain or cramping, feeling faint or severe weakness, fever, etc.), notify the physician immediately or return to the Emergency Department at any time for re-evaluation. [facility]NO [facility] - Follow up tomorrow
[2017-08-08 13:22] LABS: ALANINE AMINOTRANSFERASE 25 U/L (9-52); ALBUMIN 4.1 g/dL (3.5-5.0); ALKALINE PHOSPHATASE 73 U/L (38-126); ANION GAP 12 (5-19); ASPARTATE AMINO TRANSFERASE 22 U/L (14-36); BILIRUBIN,DIRECT 0.4 mg/dL (0.0-0.4); BILIRUBIN,TOTAL 0.4 mg/dL (0.2-1.3); BLOOD UREA NITROGEN 6 mg/dL (7-20); CALCIUM 9.9 mg/dL (8.4-10.2); CARBON DIOXIDE 24 mmol/L (22-30); CHLORIDE 102 mmol/L (98-107); CREATININE RESULT 0.43 mg/dL (0.52-1.25); GLUCOSE 69 mg/dL (75-110); POTASSIUM 3.2 mmol/L (3.6-5.0)
--- NOTE | 2017-08-08 14:07 | RADIOLOGY REPORT (SQ) ---
EXAM DESCRIPTION: U/S OB 14+ TRNABD 1GES W/O DOP COMPLETED DATE/TIME: 08/08/2017 1:30 pm REASON FOR STUDY: preg/bleeding COMPARISON: OB ultrasound 06/24/2017 TECHNIQUE: Static and Dynamic grayscale imaging performed of gravid uterus using transabdominal appr oach. Additional selected color Doppler and spectral images recorded. All stored on PACS. LIMITATIONS: None. FINDINGS: EGA: 18 weeks 5 days STEVEN: 01/04/2018 EFW: 240 grams PERCENTILE: Not calculated BERTRAND: Largest pocket 5.2 cm PLACENTA: Posterior. GRADE: I PRESENTATION: Cephalic. ANATOMY: HEART RATE: 150 beats per minute. FOUR CHAMBER HEART: Visualized. THREE VESSEL CORD: Yes. CORD INSERTION: Visualized. KIDNEYS AND BLADDER: Visualized. Appear normal. STOMACH: Visualized. Appears normal. SPINE: Normal as visualized. BRAIN AND LATERAL VENTRICLES: Visualized. Appear normal. OTHER: No other significant finding. MATERNAL ADNEXA: Maternal ovaries not visualized. CERVICAL LENGTH: 4.2 cm Closed. OTHER: No other significant finding. IMPRESSION: LIVING INTRAUTERINE . ESTIMATED GESTATIONAL AGE 18 weeks 5 days NO VISUALIZED ANOMALIES. Trimester of : Second trimester - 13 weeks 1 day to 27 weeks 6 days. TECHNICAL DOCUMENTATION: JOB ID: [id number] [employer]- All Rights Reserved
== END 2017-08-08 14:27 | disposition home or self-care (01) ==
LOC: ER 11:43
DX: O20.9 Hemorrhage in early pregnancy, unspecified (principal); R10.9 Unspecified abdominal pain; Z3A.18 18 weeks gestation of pregnancy; Z87.442 Personal history of urinary calculi
CPT/HCPCS: 36415; 76805; 80053; 81001; 85025; 86900; 86901; 99284

== ENCOUNTER 2017-12-18 11:23 | Outpatient (CLI) | payer MEDICAID ==
[2017-12-18 12:40] LABS: APPEARANCE,URINE CLOUDY; BILIRUBIN,URINE NEGATIVE (NEGATIVE); COLOR,URINE YELLOW; GLUCOSE, URINE NEGATIVE (NEGATIVE); KETONES,URINE NEGATIVE (NEGATIVE); LEUKOCYTE ESTERASE,URINE LARGE (NEGATIVE); NITRITE,URINE NEGATIVE (NEGATIVE); PROTEIN,URINE 30 mg/dL (NEGATIVE); UROBILINOGEN,URINE NEGATIVE mg/dL (<2.0)
[2017-12-18 13:17] LABS: URINE AMPHETAMINES SCREEN NEGATIVE; URINE BARBITURATES SCREEN NEGATIVE; URINE BENZODIAZEPINES SCREEN NEGATIVE; URINE COCAINE SCREEN NEGATIVE; URINE MARIJUANA (THC) SCREEN NEGATIVE; URINE METHADONE SCREEN NEGATIVE; URINE PHENCYCLIDINE SCREEN NEGATIVE
[2017-12-18 14:55] LABS: CHLAM PCR NOT DETECTED (NOT DETECT); GON PCR NOT DETECTED (NOT DETECT)
--- NOTE | 2017-12-18 14:57 | Non Stress Test Report ---
Non Stress Test Datetime Report Generated by CPN: 12/18/2017 14:57 DEMOGRAPHIC EGA NST: 37.4 INDICATION Indication for Study: Ordered by Provider MONITORING Monitor Explained: Monitor Explained; Test Explained; Patient Verbalized Understanding Time on Monitor: 12/18/2017 11:59 Time off Monitor: 12/18/2017 12:53 NST Duration: 54 NST INTERVENTIONS NST Interventions: PO Hydration; Reposition Patient Physician Notified NST: Dr Maxwell BABY A: [id number] BABY A Movement : Present Contraction Frequency : irritability FHR Baseline : 145 Accelerations : 15X15 Decelerations : None Variability : Moderate 6-25bpm NST Review: Meets Criteria for Reactive NST NST Review and Verified By : DAVID Villarreal Results: Reactive NST REPORT Report Trigger: Send Report
[2017-12-18 15:18] LABS: RUBELLA INTERPRETATION POSITIVE
--- NOTE | 2017-12-18 15:19 | RADIOLOGY REPORT (SQ) ---
EXAM DESCRIPTION: U/S OB LIMITED COMPLETED DATE/TIME: 12/18/2017 2:51 pm REASON FOR STUDY: no care, growth, bertrand COMPARISON: None. TECHNIQUE: Static and Dynamic grayscale imaging performed of gravid uterus using transabdominal appr oach. Additional selected color Doppler and spectral images recorded. All stored on PACS. LIMITATIONS: None. FINDINGS: EGA: 33 weeks 6 days. This is 25 days less than expected from the prior ultrasound sugges ting IUGR. STEVEN: 01/30/2018 based on the current ultrasound. EFW: 2431 g grams PERCENTILE: 1% BERTRAND: 10.6 PLACENTA: Posterior. GRADE: III PRESENTATION: Cephalic. HEART RATE: 158 beats per minute beats per minute. IMPRESSION: The gestational age is significantly less than expected compared to the menstrual histor y suggesting IUGR. Trimester of : Third trimester - 28 weeks to delivery. TECHNICAL DOCUMENTATION: JOB ID: [id number] [employer]- All Rights Reserved
[2017-12-19 07:12] LABS: HEPATITIS C VIRUS AB >11.0 s/co ratio (0.0-0.9); HEPATITS B SURFACE ANTIGEN Negative (Negative)
== END 2017-12-18 14:52 | disposition home or self-care (01) ==
LOC: LC 11:23
PROVIDERS: ATTEND Obstetrics & Gynecology
PROC: 4A1HXCZ Monitoring of Products of Conception, Cardiac Rate, External Approach (ICD-10-PCS; principal; 2017-12-18)
DX: O09.33 Supervision of pregnancy with insufficient antenatal care, third trimester (principal); Z3A.37 37 weeks gestation of pregnancy
CPT/HCPCS: 36415; 59025; 76815; 80307; 81005; 86592; 86701; 86762; 86803; 86804; 86850; 86900; 86901; 87081; 87340; 87491; 87591

== ENCOUNTER 2017-12-27 13:55 | Inpatient (IN) | payer MEDICAID ==
[2017-12-27 14:48] LABS: APPEARANCE,URINE SLIGHTLY-CLOUDY; BILIRUBIN,URINE NEGATIVE (NEGATIVE); COLOR,URINE YELLOW; GLUCOSE, URINE NEGATIVE (NEGATIVE); KETONES,URINE NEGATIVE (NEGATIVE); LEUKOCYTE ESTERASE,URINE LARGE (NEGATIVE); NITRITE,URINE NEGATIVE (NEGATIVE); PROTEIN,URINE NEGATIVE (NEGATIVE); URINE SPECIFIC GRAVITY 1.013
[2017-12-27 14:57] LABS: URINE AMPHETAMINES SCREEN NEGATIVE; URINE BARBITURATES SCREEN NEGATIVE; URINE BENZODIAZEPINES SCREEN NEGATIVE; URINE COCAINE SCREEN NEGATIVE; URINE MARIJUANA (THC) SCREEN NEGATIVE; URINE METHADONE SCREEN NEGATIVE; URINE PHENCYCLIDINE SCREEN NEGATIVE
[2017-12-27 15:27] LABS: ABSOLUTE BASOPHILS # (AUTO) 0.1 10^3/uL (0.0-0.2); ABSOLUTE EOSINOPHILS # (AUTO) 0.1 10^3/uL (0.0-0.6); ABSOLUTE LYMPHOCYTES (AUTO) 2.6 10^3/uL (0.5-4.7); ABSOLUTE MONOCYTES (AUTO) 0.6 10^3/uL (0.1-1.4); ABSOLUTE NEUT (AUTO) 6.2 10^3/uL (1.7-8.2); BASOPHILS % (AUTO) 0.8 % (0-2); HEMATOCRIT 31.6 % (36.0-47.0); HEMOGLOBIN 10.7 g/dL (12.0-15.5); LYMPHOCYTES % (AUTO) 26.7 % (13-45); MEAN CORPUSCULAR HEMOGLOBIN 27.3 pg (27.0-33.4); MEAN CORPUSCULAR VOLUME 80 fl (80-97); MONOCYTES % (AUTO) 6.7 % (3-13); PLATELET COUNT 329 10^3/uL (150-450); RED BLOOD COUNT 3.94 10^6/uL (3.72-5.28); RED CELL DISTRIBUTION WIDTH 14.9 % (11.5-14.0); SEGMENTED NEUTROPHILS % (AUTO) 64.8 % (42-78); TOTAL CELLS COUNTED % (AUTO) 100 %; WHITE BLOOD COUNT 9.6 10^3/uL (4.0-10.5)
[2017-12-27 16:17] LABS: RUBELLA INTERPRETATION POSITIVE
[2017-12-27] MEDS ORDERED: RINGERS SOLUTION,LACTATED 1,000 ML IV PRN (16:38)
[2017-12-27] MEDS ORDERED: RINGERS SOLUTION,LACTATED 500 ML IV PRN (16:38)
[2017-12-28] MEDS ORDERED: KETOROLAC TROMETHAMINE INJ/PF 30 MG/1 ML SDV ONE (08:45)
[2017-12-28] MEDS ORDERED: OXYTOCIN 10 UNIT/ML VIAL ONE (08:45)
[2017-12-28] MEDS ORDERED: FENTANYL CITRATE INJ/PF 100 MCG/2 ML AMPUL ONE (08:45)
[2017-12-28] MEDS ORDERED: EPHEDRINE SULFATE INJ 50 MG/1 ML AMPULE ONE (08:45)
[2017-12-28] MEDS ORDERED: ONDANSETRON HCL INJ/PF 4 MG/2 ML SDV ONE (08:46)
[2017-12-28] MEDS ORDERED: MIDAZOLAM 2 MG/2 ML INJ ONE (08:46)
[2017-12-28] MEDS ORDERED: OXYTOCIN/NORMAL SALINE 0 UNIT/0 ML RTUINJ ONE (08:46)
--- NOTE | 2017-12-28 09:30 | Non Stress Test Report ---
Non Stress Test Datetime Report Generated by CPN: 12/28/2017 09:29 DEMOGRAPHIC EGA NST: 38.6 INDICATION Indication for Study: Intrauterine Growth Restriction; Ordered by Provider MONITORING Monitor Explained: Monitor Explained; Test Explained; Patient Verbalized Understanding Time on Monitor: 12/27/2017 14:20 Time off Monitor: 12/27/2017 17:28 NST Duration: 188 NST INTERVENTIONS NST Interventions: PO Hydration; IV Fluids; Reposition Patient Physician Notified NST: Dr. Roa BABY A: [id number] BABY A Movement : Present Contraction Frequency : occasional FHR Baseline : 125 Accelerations : 15X15 Decelerations : None Variability : Moderate 6-25bpm NST Review: Meets Criteria for Reactive NST NST Review and Verified By : Brendon Vale RNC NST Results: Reactive NST REPORT Report Trigger: Send Report
[2017-12-28] MEDS ORDERED: AZITHROMYCIN INJ 500 MG VIAL IV ONE ×2 (09:52→09:54)
[2017-12-28] MEDS ORDERED: CEFAZOLIN 1 GM/D5W RTU 1 GM/50 ML RTUPB IV ONE (09:54)
[2017-12-28] MEDS ORDERED: CITRIC ACID/SODIUM CITRATE ORAL SOLN 15 ML UDCUP ONE (10:07)
[2017-12-28] MEDS: CEFAZOLIN 1 GM/D5W RTU 1 GM/50 ML RTUPB IV PRN ×2 (10:35→12:13)
[2017-12-28] MEDS ORDERED: MEPERIDINE HCL/PF INJ 25 MG/1 ML DISP.SYRIN IV PRN (10:51)
[2017-12-28] MEDS ORDERED: FENTANYL CITRATE INJ/PF 100 MCG/2 ML AMPUL IV PRN ×3 (10:51)
[2017-12-28] MEDS ORDERED: MORPHINE SULFATE 10 MG/ML INJ IV PRN (10:51)
[2017-12-28] MEDS ORDERED: PROMETHAZINE HCL INJ 25 MG/1 ML VIAL IV PRN ×3 (10:51→11:00)
[2017-12-28] MEDS ORDERED: ONDANSETRON HCL INJ/PF 4 MG/2 ML SDV IV PRN (10:51)
[2017-12-28] MEDS ORDERED: OXYCODONE-ACETAMINOPHEN 5-325 MG TABLET PO PRN ×2 (10:51)
[2017-12-28] MEDS ORDERED: DIPHENHYDRAMINE HCL 50 MG/ML VIAL IV PRN (10:51)
--- NOTE | 2017-12-28 10:59 | PDOC DELIVERY SUMMARY ---
Delivery Summary - Maternal Hx : III Hx # Term Pregnancies: 2 Hx # Pregnancies: 0 Hx Total # of Abortions (Sponateous & Elective): 0 STEVEN: 12/28/17 Gestational Age: 39.0 Risk Factors: No Care Ruptured Membranes: AROM Fluids: Clear - Delivery Labor: Not In Labor Presentation: Vertex, Face/Brow Support Person Present: Yes Location: OR : Scheduled Placenta: Within Normal Limits Number of Vessels (Cord): 3 Delivery of Placenta Date: 12/28/17 Delivery of Placenta Time: 10:40 - Medications Type of Anesthesia:: Spinal - Assess and Care Baby 1 Female Delivery of Infant Date: 12/28/17 Delivery of Time: 10:39 Preprinted Number On Band: [id number] Skin to Skin: No To Nursery At: 10:46 Mode of Transport: Bassinet - Delivery Personnel Telephone Recorder: SHRUTHI VIZCARRA Nursery RN: Keo BRONSON RN: RAUL OREILLY MD: KEV DUBON
[2017-12-28] MEDS ORDERED: KETOROLAC TROMETHAMINE INJ/PF 30 MG/1 ML SDV IV SCH (11:00)
[2017-12-28] MEDS ORDERED: DEXTROSE 50%-WATER 25 GM/50 ML DISP.SYRIN IV PRN ×2 (11:00)
[2017-12-28] MEDS ORDERED: ACETAMINOPHEN 325 MG TABLET PO PRN (11:00)
[2017-12-28] MEDS ORDERED: DEXTROSE 40% GEL 15 GM TUBE PO PRN ×2 (11:00)
[2017-12-28] MEDS ORDERED: MEASLES,MUMPS&RUBELLA VACC/PF 0.5 ML VIAL SUBCUT PRN (11:00)
[2017-12-28] MEDS ORDERED: SIMETHICONE 80 MG TAB.CHEW PO PRN (11:00)
[2017-12-28] MEDS ORDERED: DIPH/PERTUSS(ACELL)/TETANUS VAC/PF 0.5 ML SYR (>=10YO) IM PRN (11:00)
[2017-12-28] MEDS ORDERED: HYDROMORPHONE HCL INJ/PF 2 MG/ML AMPULE IV PRN (11:00)
[2017-12-28] MEDS ORDERED: GLUCAGON,HUMAN RECOMB 1 MG INJ SUBCUT PRN (11:00)
[2017-12-28] MEDS ORDERED: OXYTOCIN/NORMAL SALINE 20 UNIT/1,000 ML RTUINJ IV PRN (11:00)
--- NOTE | 2017-12-28 11:13 | OPERATIVE REPORT E ---
Operative Report NAME: REINALDO RAJPUT : 1990 AGE: 27Y DATE OF SURGERY: 12/28/2017 ROOM: LR200 PREOPERATIVE DIAGNOSES: 1. IUP at term. 2. No care. 3. Prior . POSTOPERATIVE DIAGNOSES: 1. IUP at term. 2. No care. 3. Prior . OPERATION: Repeat low transverse with delivery of a viable female, Apgars 9 and 9, weighed 6 pounds 3 ounces. SURGEON: Heike DUBON M.D. ANESTHESIA: Spinal. TISSUE REMOVED OR ALTERED: Placenta. PROCEDURE: The patient was placed in a dorsal lithotomy position, prepped and draped in sterile fashion. Rolls put on the right side. A Pfannenstiel incision was made through an existing Pfannenstiel eschar and the incision extended through the subcutaneous tissue and fascia with sharp dissection. The fascia was sharply divided. Rectus muscles were bluntly and sharply divided. Parietal peritoneum was entered with sharp dissection. Uterus was nicked in the midline and extended bilaterally. Infant was then delivered through the uterine abdominal incision, nose and mouth suctioned with the bulb syringe, cord was clamped, and infant was passed from the table. The placenta was then manually extracted and the uterus was closed in 2 layers of 0 Vicryl, the first a running stitch and the second a Lembert to imbricate the first layer. Hemostasis was noted. The fascia was closed with 0 Vicryl in running fashion. The skin was closed with subcu absorbable radha. The patient tolerated it well. Urine remained clear throughout the procedure. She was taken to recovery in good condition and infant to nursery in good condition. DICTATING PHYSICIAN: Heike DUBON M.D. [id number] PHY#: [id number] ID: [id number] JOB#: [id number] ACCT: [id number] cc:Heike DUBON M.D. >
[2017-12-28] MEDS ORDERED: OXYTOCIN/NORMAL SALINE 20 UNIT/1,000 ML RTUINJ ONE (11:32)
[2017-12-28] MEDS ORDERED: IBUPROFEN 800 MG TABLET PO SCH (12:00)
[2017-12-28] MEDS ORDERED: MORPHINE SULFATE 10 MG/ML INJ ONE (12:58)
[2017-12-28] MEDS: OXYCODONE-ACETAMINOPHEN 5-325 MG TABLET PO PRN (15:00)
[2017-12-28] MEDS: DOCUSATE SODIUM 100 MG CAPSULE PO SCH (17:57)
[2017-12-28] MEDS: KETOROLAC TROMETHAMINE INJ/PF 30 MG/1 ML SDV IV SCH (17:57)
[2017-12-29] MEDS: KETOROLAC TROMETHAMINE INJ/PF 30 MG/1 ML SDV IV SCH ×2 (01:03→10:21)
[2017-12-29] MEDS: OXYCODONE-ACETAMINOPHEN 5-325 MG TABLET PO PRN ×5 (02:36→23:07)
[2017-12-29 05:40] LABS: HEPATITIS C VIRUS AB >11.0 s/co ratio (0.0-0.9)
[2017-12-29 07:07] LABS: HEMATOCRIT 29.3 % (36.0-47.0); HEMOGLOBIN 9.8 g/dL (12.0-15.5); MEAN CORPUSCULAR HEMOGLOBIN 27.5 pg (27.0-33.4); MEAN CORPUSCULAR HGB CONC 33.6 g/dL (32.0-36.0); MEAN CORPUSCULAR VOLUME 82 fl (80-97); PLATELET COUNT 246 10^3/uL (150-450); RED BLOOD COUNT 3.58 10^6/uL (3.72-5.28); WHITE BLOOD COUNT 9.5 10^3/uL (4.0-10.5)
[2017-12-29] MEDS: DOCUSATE SODIUM 100 MG CAPSULE PO SCH ×2 (10:23→18:24)
[2017-12-29] MEDS: PRENATAL VITAMIN W DHA CAPSULE PO SCH (10:23)
--- NOTE | 2017-12-29 11:46 | PDOC PROGRESS REPORT ---
Subjective-OB Subjective: Post Delivery Day: 27 year old. Denies any needs at this time Physical Exam (OB) Vital Signs: Temp Pulse Resp BP Pulse Ox 98.0 F 73 18 125/83 99 12/29/17 07:25 12/29/17 07:25 12/29/17 07:25 12/29/17 07:25 12/29/17 07:25 Intake & Output 12/28/17 12/29/17 12/30/17 06:59 06:59 06:59 Intake Total 1565 Output Total 2100 Balance -535 Weight 56.245 kg 56 kg - PIH/Pre-Eclampsia DTR's: 2 + Clonus: Negative Headache: Absent Epigastric Pain: No Visual Changes: No - Dressing Removed: No Incision: Dressing - Lochia Lochia Amount: Small 10-25 ml Lochia Color: Rubra/Red - Abdomen Description: Tender, Soft Hernia Present: No Bowel Sounds: Normoactive Flatus Presence: Present Stool: No Fundal Description: Firm, Midline Fundal Height: u/u - u/2 Objective-Diagnostic Laboratory: 12/29/17 06:34 12/29/17 06:34 WBC 9.5 RBC 3.58 L Hgb 9.8 L Hct 29.3 L MCV 82 MCH 27.5 MCHC 33.6 RDW 15.0 H Plt Count 246
[2017-12-29 12:06] LABS: HEPATITS B SURFACE ANTIGEN Negative (Negative)
[2017-12-29] MEDS: IBUPROFEN 800 MG TABLET PO SCH ×3 (18:23→23:07)
[2017-12-30] MEDS: IBUPROFEN 800 MG TABLET PO SCH ×2 (05:20→11:32)
[2017-12-30] MEDS: OXYCODONE-ACETAMINOPHEN 5-325 MG TABLET PO PRN (05:21)
[2017-12-30] MEDS: DOCUSATE SODIUM 100 MG CAPSULE PO SCH (09:17)
[2017-12-30] MEDS: PRENATAL VITAMIN W DHA CAPSULE PO SCH (09:18)
--- NOTE | 2017-12-30 10:22 | PDOC PROGRESS REPORT ---
Subjective-OB Subjective: Post Delivery Day: 27 year old. Denies any needs at this time. Ready for discharge. Physical Exam (OB) Vital Signs: Temp Pulse Resp BP Pulse Ox 98.2 F 69 14 114/73 100 12/30/17 07:49 12/30/17 07:49 12/30/17 07:49 12/30/17 07:49 12/30/17 07:49 Intake & Output 12/29/17 12/30/17 12/31/17 06:59 06:59 06:59 Intake Total 1565 420 Output Total 2100 Balance -535 420 Weight 56 kg - PIH/Pre-Eclampsia DTR's: 2 + Clonus: Negative Headache: Absent Epigastric Pain: No Visual Changes: No - Dressing Removed: Yes Incision: Well Approximated Closure Type: Steri-Strips - Lochia Lochia Amount: Scant < 10 ml Lochia Color: Rubra/Red - Abdomen Description: Tender, Soft, Round Hernia Present: No Bowel Sounds: Normoactive Flatus Presence: Present Stool: No Fundal Description: Firm, Midline Fundal Height: u/u - u/2 Objective-Diagnostic Laboratory: 12/29/17 06:34
--- NOTE | 2017-12-30 10:37 | PDOC DISCHARGE SUMMARY ---
Final Diagnosis Discharge Date: 12/30/17 - Final Diagnosis (1) Delivery by emergency caesarean section Is this a current diagnosis for this admission?: Yes (2) Drug abuse, opioid type Is this a current diagnosis for this admission?: Yes (3) No care in current Is this a current diagnosis for this admission?: Yes (4) Is this a current diagnosis for this admission?: Yes Discharge Data - Discharge Medication Prescriptions: Oxycodone HCl/Acetaminophen [Percocet 5-325 mg Tablet] 2 tab PO Q4HP PRN #20 tablet PRN Reason: Ferrous Sulfate 325 mg PO BID #60 tablet. Ibuprofen [Motrin 800 mg Tablet] 800 mg PO Q6 #30 tablet Home Medications: No122/Iron/Folic Acid [ Multi Tablet] 1 each PO DAILY 12/27/17 Ferrous Sulfate 325 mg PO BID #60 tablet. 12/30/17 Ibuprofen [Motrin 800 mg Tablet] 800 mg PO Q6 #30 tablet 12/30/17 Oxycodone HCl/Acetaminophen [Percocet 5-325 mg Tablet] 2 tab PO Q4HP PRN #20 tablet 12/30/17 Gestational Age: 38.6 wks Reason(s) for Admission: Onset of Labor Procedures: Ultrasound Intrapartum Procedure(s): : Low Cervical, Transverse - Data Baby 1 Female at 1 minute: 8 at 5 minutes: 9 Weight: 2.807 kg Home with Mother: No Complications: Yes - Up for adoption - Diagnosis Test Laboratory: Temp Pulse Resp BP Pulse Ox 98.2 F 69 14 114/73 100 12/30/17 07:49 12/30/17 07:49 12/30/17 07:49 12/30/17 07:49 12/30/17 07:49 12/27/17 12/27/17 12/29/17 14:27 15:00 06:34 RBC 3.94 3.58 L Hgb 10.7 L 9.8 L Hct 31.6 L 29.3 L Urine Opiates Screen UNCONFIRMED POSITIVE - Discharge information/Instructions Discharge Activity: Activity As Tolerated, Balance Activity w/Rest, No Lifting Over 10 Pounds, No Lifting/Push/Pulling, Pelvic Rest, Slowly Increase Activity, No tub bath Discharge Diet: Regular Disposition: HOME, SELF-CARE Follow [facility]: [facility] in: 1, Weeks
[2017-12-30 10:46] VITALS: BP 107/62
--- NOTE | 2018-01-03 08:53 | Admission Physical ---
Datetime Report Generated by CPN: 01/03/2018 08:53 CURRENT ADMISSION Chief Complaint: Uterine Contractions Indication for Induction: Not Applicable Indication for Induction: Term, Intrauterine ; No Active Labor Admit Plan: Admit to Unit; Initiate Section Protocol ALLERGIES Medication Allergies: Yes Medication Allergies: Sulfa (Sulfonamide Antibiotics)/Hives (12/27/2017) Medication Allergies: Sulfa (Sulfonamide Antibiotics)/Hives (12/18/2017) Medication Allergies: Sulfa (Sulfonamide Antibiotics)/Hives (08/08/2017) Medication Allergies: Sulfa (Sulfonamide Antibiotics)/Hives (03/17/2014) Latex: No Latex Allergies OBSTETRICAL HISTORY EDC: 01/04/2018 00:00 : 3 Para: 2 Term: 2 : 0 SAB: 0 IAB: 0 Ectopic: 0 Livin Cesareans: 2 VBACs: 0 Multiple Births: 0 Gestational Diabetes: No Rh Sensitization: No Incompetent Cervix: No LAMIN: No Infertility: No ART Treatment: No Uterine Anomaly: No IUGR: No Hx Previous C/S: Yes Macrosomia: No Hx Loss/Stillborn: No PIH: No Hx : No Placenta Previa/Abruption: No Depression/PP Depression: Yes PTL/PROM: No Post Hemorrhage: No Current Procedures: Ultrasound Obstetrical History Comments: G1: primary c/s 2010 - failure to progress G2: repeat c/s 2013 G3: current, no care SEE RECORDS Alcohol: No Marijuana : No Cocaine: No Other Illicit Drugs: Yes Illicit Drug Comments: opiates Cigarettes: Current Everyday Smoker. [id number] Cigarette Frequency: 5 - 10 per day Advised to Stop: Yes MEDICAL HISTORY Diabetes: No Blood Transfusion: No Pulmonary Disease (Asthma, TB): No Breast Disease: No Hypertension: No Political Aide Surgery: No Heart Disease: No Hosp/Surgery: Yes Autoimmune Disorder: No Anesthetic Complications: No Kidney Disease: No Abnormal Pap Smear: No Neuro/Epilepsy: No Psychiatric Disorders: No Other Medical Diseases: No Hepatitis/Liver Disease: No Significant Family History: No Varicosities/Phlebitis: No Trauma/Violence : No Thyroid Dysfunction: No Medical History Comments: depression, INFECTIOUS HISTORY Gonorrhea: No Genital Herpes: No Chlamydia: No Tuberculosis: No Syphilis: No Hepatitis: No HIV/AIDS Exposure: No Rash or Viral Illness: No HPV: No PHYSICAL EXAM General: Normal HEENT: Normal Neurologic: Normal Thyroid: Deferred Heart: Normal Lungs: Normal Breast: Deferred Back: Normal Abdomen: Normal Genitourinary Exam: Normal Extremities: Normal DTRs: Normal Pelvic Type: Adequate Vital Signs: Reviewed VAGINAL EXAM Dilatation: 1 Effacement: 50 Station: -2 Contraction Comments: irreg MEMBRANES Membranes: Intact FETUS A Monitoring: External US FHR- Baseline: 135 Variability: Moderate 6-25bpm Accelerations: 15X15 Decelerations: None FHR Category: Category I Presentation: Vertex Admit Comment: 24yo at 38+6ega presents for regular uterine contractions. Upon presentation she was having regular contractions q 2-4 minutes. Cervix upon presentation was 1.5/50/hi/post/soft. Approximately 1 hour later patient reported contractions were worse and cervix was evaluated and no cervical change. No care - labs done. GBS negative from prior labor check. Cervix then evaluated 3 hours after initial check and no cervical change. However, patient still having contractions (palpate mild) and no pain at incision site. Pt with reported history of drug use. She has a history of 2 sections and needs a repeat. Due to patients contractions and concern for her and baby wellbeing and no care will admit and prepare for section in am. If patient status changes and evidence of active labor or distress then will proceed with section when that occurs. She is dated by US at 12+2ega and STEVEN 01/04/2018. She has a history of Depression and anxiety. She will need General Supervisor - no care, h/o depression, and individual in room states she is taking custody of infant at (paperwork sent through brand planner to legal). Anticipate scheduled section in am. PLANS FOR LABOR AND DELIVERY Labor and Delivery: None Pain Management: Spinal Feeding Preference: Formula Benefit of Breast Feed Discussed: Yes INFORMED CONSENT Informed Consent Obtained: Section Delivery; Risks, Benefits and Alternatives Discussed Signature: with User ID: [email or web address]
== END 2017-12-30 13:15 | disposition home or self-care (01) | DRG 765 ==
LOC: LC 13:55 → LR 17:59 → 2S 12-28 13:25
PROVIDERS: ADMIT Obstetrics & Gynecology Gynecology; ATTEND Obstetrics & Gynecology Gynecology
PROC: 4A1HXCZ Monitoring of Products of Conception, Cardiac Rate, External Approach (ICD-10-PCS; 2017-12-27)
PROC: 10D00Z1 Extraction of Products of Conception, Low, Open Approach (ICD-10-PCS; principal; 2017-12-28 10:15)
DX: O34.219 Maternal care for unspecified type scar from previous cesarean delivery (principal); O99.324 Drug use complicating childbirth; O99.344 Other mental disorders complicating childbirth; F32.9 Major depressive disorder, single episode, unspecified; O34.211 Maternal care for low transverse scar from previous cesarean delivery; F41.9 Anxiety disorder, unspecified; F11.90 Opioid use, unspecified, uncomplicated; O99.334 Smoking (tobacco) complicating childbirth; F17.210 Nicotine dependence, cigarettes, uncomplicated; Z88.2 Allergy status to sulfonamides; Z37.0 Single live birth
CPT/HCPCS: 1961; 36415; 59025; 80307; 80361; 81001; 85025; 85027; 86592; 86701; 86762; 86803; 86804; 86850; 86900; 86901; 87340; 94799; J0456; J0690; J1170; J1885; J2250; J2270; J2405; J2590; J3010; J3490; J7120

== ENCOUNTER 2018-01-09 10:12 | Emergency (ER) | payer MEDICAID ==
[2018-01-09 10:25] VITALS: BP 131/83
== END 2018-01-09 11:17 | disposition left against medical advice (07) ==
LOC: ER 10:12
DX: Z53.21 Procedure and treatment not carried out due to patient leaving prior to being seen by health care provider (principal)

== ENCOUNTER 2018-02-26 21:54 | Emergency (ER) | payer MEDICAID ==
--- NOTE | 2018-02-26 22:54 | RADIOLOGY REPORT (SQ) ---
EXAM DESCRIPTION: ELBOW RIGHT AP/LAT COMPLETED DATE/TIME: 02/26/2018 10:34 pm REASON FOR STUDY: part of needle broke off in arm COMPARISON: None. NUMBER OF VIEWS: Four views. TECHNIQUE: AP, lateral, and both oblique radiographic images acquired of the right elbow. LIMITATIONS: None. FINDINGS: MINERALIZATION: Normal. BONES: No acute fracture or dislocation. No worrisome bone lesions. JOINT: No effusion. SOFT TISSUES: A linear metallic density localizes to the antecubital superficial soft tissues. OTHER: No other significant finding. IMPRESSION: Retained radiopaque foreign body within the antecubital superficial soft tissues. TECHNICAL DOCUMENTATION: JOB ID: [id number] [employer]- All Rights Reserved Reading location - IP/workstation name: [email or web address]
[2018-02-26] MEDS ORDERED: CEPHALEXIN 500 MG CAPSULE PO ONE (23:29)
[2018-02-26] MEDS ORDERED: DOXYCYCLINE HYCLATE 100 MG TABLET PO ONE (23:30)
[2018-02-26] MEDS ORDERED: DIPH/PERTUSS(ACELL)/TETANUS VAC/PF 0.5 ML SYR (>=10YO) IM ONE (23:31)
--- NOTE | 2018-02-26 23:37 | ER Document Report ---
ED Foreign Body - General Chief Complaint: Foreign Body Stated Complaint: FOREIGN OBJECT IN RIGHT ARM Time Seen by Provider: 02/26/18 23:06 Mode of Arrival: Ambulatory Notes: Patient presents with complaint of needle in right arm. Patient states that she was shooting up meth with an old insulin type needle approximately two hours prior to arrival when the needle broke off in her right arm. Patient denies any pain or other symptoms. Unknown last tetanus. Patient reports that she has been clean for several months and relapsed this evening. Patient tearful during exam. Patient denies any suicidal thoughts or intent to harm herself. TRAVEL OUTSIDE OF THE [place] IN LAST 30 DAYS: No - Related Data Allergies/Adverse Reactions: Sulfa (Sulfonamide Antibiotics) Allergy (Verified 01/09/18 10:13) Hives Past Medical History - Social History Smoking Status: Current Every Day Smoker Frequency of alcohol use: None Drug Abuse: Methamphetamine Lives with: Family Family History: Other - Cancer and hypertension Patient has suicidal ideation: No Patient has homicidal ideation: No - Past Medical History Cardiac Medical History: Denies: Hx Hypertension, Hx Pulmonary Embolism, Hx Heart Murmur Pulmonary Medical History: Denies: Hx Asthma, Hx Sleep Apnea, Hx Tuberculosis Neurological Medical History: Denies: Hx Cerebrovascular Accident, Hx Seizures Endocrine Medical History: Denies: Hx Hyperthyroidism, Hx Hypothyroidism Renal/ Medical History: Reports: Hx Kidney Stones - no stones, but cyst on kidney. Denies: Hx Ovarian Cysts, Hx Peritoneal Dialysis, Hx Pelvic Inflammatory Disease Malignancy Medical History: Denies: Hx Breast Cancer, Hx Cervical Cancer, Hx Ovarian Cancer GI Medical History: Reports: Hx Hepatitis - Hepatitis C. Denies: Hx Gastroesophageal Reflux Disease, Hx Hiatal Hernia, Hx Ulcer Musculoskeltal Medical History: Denies Hx Fibromyalgia Psychiatric Medical History: Reports: Hx Anxiety, Hx Depression Denies: Hx Bipolar Disorder, Hx Post Traumatic Stress Disorder, Hx Schizophrenia Traumatic Medical History: Denies: Hx Fractures Infectious Medical History: Denies: Hx HIV Past Surgical History: Reports: Hx Section - x3. Denies: Hx Appendectomy, Hx Bowel Surgery, Hx Cholecystectomy, Hx Coronary Artery Bypass Graft, Hx Gastric Bypass Surgery, Hx Herniorrhaphy, Hx Hysterectomy, Hx Mastectomy, Hx Pacemaker, Hx Tonsillectomy, Hx Tubal Ligation - Immunizations Hx Diphtheria, Pertussis, Tetanus Vaccination: No - Patient unsure of last tdap Review of Systems - Review of Systems Constitutional: No symptoms reported EENT: No symptoms reported Cardiovascular: No symptoms reported Respiratory: No symptoms reported Gastrointestinal: No symptoms reported Genitourinary: No symptoms reported Female Genitourinary: No symptoms reported Musculoskeletal: See HPI Skin: See HPI Hematologic/Lymphatic: No symptoms reported Neurological/Psychological: No symptoms reported Physical Exam - Vital signs Vitals: Temp Pulse Resp BP Pulse Ox 98.3 F 120 H 18 139/92 H 98 02/26/18 21:55 02/26/18 21:55 02/26/18 21:55 02/26/18 21:55 02/26/18 21:55 Interpretation: Normal - General General appearance: Appears well, Alert, Anxious, Other - Tearful - HEENT Head: Normocephalic, Atraumatic Eyes: Normal Pupils: PERRL - Respiratory Respiratory status: No respiratory distress Chest status: Nontender Breath sounds: Normal Chest palpation: Normal - Cardiovascular Rhythm: Regular Heart sounds: Normal auscultation Murmur: No - Abdominal Inspection: Normal Distension: No distension Bowel sounds: Normal Tenderness: Nontender Organomegaly: No organomegaly - Back Back: Normal, Nontender - Extremities General upper extremity: Normal ROM, Normal strength, Other - Full range of motion to right upper extremity, approx 1.5 cm linear shaped hardened area noted to antecubital space consistent with foreign body, radial pulse strong, cap refill less than 3 seconds. General lower extremity: Normal inspection, Nontender, Normal color, Normal ROM , Normal temperature, Normal weight bearing. No: Disha's sign - Neurological Neuro grossly intact: Yes Cognition: Normal Orientation: AAOx4 Guerline Coma Scale Eye Opening: Spontaneous Pedro Coma Scale Verbal: Oriented Pedro Coma Scale Motor: Obeys Commands Guerline Coma Scale Total: 15 Speech: Normal Motor strength normal: LUE, RUE, LLE, RLE Sensory: Normal - Psychological Associated symptoms: Anxious, Tearful - Skin Skin Temperature: Warm Skin Moisture: Dry Skin Color: Normal Course - Re-evaluation Re-evalutation: Bedside ultrasound performed shows foreign body to right upper extremity distal to antecubital space. Foreign body is outside the vessel in the subcutaneous tissue. Discussed risks and benefits of attempting foreign body removal with patient. Patient declines removal of foreign body as it is near a vessel. Patient elects to take oral antibiotics. Patient given return precautions and verbalizes understanding. 02/27/18 03:58 - Vital Signs Vital signs: Temp Pulse Resp BP Pulse Ox 97.9 F 111 H 16 119/81 100 02/27/18 00:50 02/27/18 00:50 02/27/18 00:50 02/27/18 00:50 02/27/18 00:50 Discharge - Discharge Clinical Impression: Foreign body in right upper extremity Qualifiers: Encounter type: initial encounter Qualified Code(s): S40.851A - Superficial foreign body of right upper arm, initial encounter Condition: Stable Disposition: HOME, SELF-CARE Additional Instructions: You have been seen today in the emergency department for a foreign body (broken needle) in your right arm. You have been given a Tdap vaccination and your first dose of antibiotics. Take antibiotics as prescribed. Follow up with your primary care physician closely. Please return to the emergency department if you develop signs of infection such as increasing redness, swelling, pain, discharge or fever. Prescriptions: Cephalexin Monohydrate [Keflex 500 mg Capsule] 500 mg PO Q6H 7 Days capsule Doxycycline Hyclate 100 mg PO BID #14 capsule
[2018-02-27 00:51] VITALS: BP 119/81
== END 2018-02-27 00:51 | disposition home or self-care (01) ==
LOC: ER 21:54
DX: S50.851A Superficial foreign body of right forearm, initial encounter (principal); W45.8XXA Other foreign body or object entering through skin, initial encounter; Y93.89 Activity, other specified; F15.10 Other stimulant abuse, uncomplicated; F17.200 Nicotine dependence, unspecified, uncomplicated; Z88.2 Allergy status to sulfonamides
CPT/HCPCS: 99283; 90471; 73070; 90715; J3490

== ENCOUNTER 2018-06-03 13:34 | Emergency (ER) | payer SELFPAY ==
[2018-06-03 13:50] VITALS: BP 116/71
--- NOTE | 2018-06-03 14:20 | ER Document Report ---
ED ENT - General Chief Complaint: Sore Throat Stated Complaint: SORE THROAT Time Seen by Provider: 06/03/18 14:11 Notes: Patient presents with 3 days of a dry cough with sore throat. She says, "To be honest, I am just here for a work note. I plan to use a spray on my throat and it does not hurt that bad." She has also had I have an appointment with the health department in 5 days for further evaluation of possible cervical cancer and pain that she has been having since December. She is convinced that there are rahda inside her abdomen, even though an ultrasound at [facility] did not reveal any radha. Denies difficulty swallowing, fevers , neck stiffness, increased abdominal pain, vaginal discharge or headache. TRAVEL OUTSIDE OF THE [place] IN LAST 30 DAYS: No - Related Data Allergies/Adverse Reactions: Sulfa (Sulfonamide Antibiotics) Allergy (Verified 06/03/18 13:39) Hives Past Medical History - General Information source: Patient - Social History Smoking Status: Current Every Day Smoker Chew tobacco use (# tins/day): No Frequency of alcohol use: None Drug Abuse: None Family History: Other - Cancer and hypertension Patient has suicidal ideation: No Patient has homicidal ideation: No - Past Medical History Cardiac Medical History: Denies: Hx Hypertension, Hx Pulmonary Embolism, Hx Heart Murmur Pulmonary Medical History: Denies: Hx Asthma, Hx Sleep Apnea, Hx Tuberculosis Neurological Medical History: Denies: Hx Cerebrovascular Accident, Hx Seizures Endocrine Medical History: Denies: Hx Hyperthyroidism, Hx Hypothyroidism Renal/ Medical History: Reports: Hx Kidney Stones - no stones, but cyst on kidney. Denies: Hx Ovarian Cysts, Hx Peritoneal Dialysis, Hx Pelvic Inflammatory Disease Malignancy Medical History: Denies: Hx Breast Cancer, Hx Cervical Cancer, Hx Ovarian Cancer GI Medical History: Reports: Hx Hepatitis - Hepatitis C. Denies: Hx Gastroesophageal Reflux Disease, Hx Hiatal Hernia, Hx Ulcer Musculoskeltal Medical History: Denies Hx Fibromyalgia Psychiatric Medical History: Reports: Hx Anxiety, Hx Depression Denies: Hx Bipolar Disorder, Hx Post Traumatic Stress Disorder, Hx Schizophrenia Traumatic Medical History: Denies: Hx Fractures Infectious Medical History: Reports: Hx Hepatitis - Hepatitis C. Denies: Hx HIV Past Surgical History: Reports: Hx Section - x3. Denies: Hx Appendectomy, Hx Bowel Surgery, Hx Cholecystectomy, Hx Coronary Artery Bypass Graft, Hx Gastric Bypass Surgery, Hx Herniorrhaphy, Hx Hysterectomy, Hx Mastectomy, Hx Pacemaker, Hx Tonsillectomy, Hx Tubal Ligation - Immunizations Hx Diphtheria, Pertussis, Tetanus Vaccination: No - Patient unsure of last tdap Review of Systems - Review of Systems Notes: REVIEW OF SYSTEMS: CONSTITUTIONAL: -fevers, -chills EENT: -eye pain, -difficulty swallowing, -nasal congestion, +sore throat CARDIOVASCULAR: -chest pain, -syncope. RESPIRATORY: -cough, -SOB GASTROINTESTINAL: -nausea, -vomiting, -diarrhea GENITOURINARY: -dysuria, -hematuria MUSCULOSKELETAL: -back pain, -neck pain SKIN: -rash or skin lesions. HEMATOLOGIC: -easy bruising or bleeding. LYMPHATIC: -swollen, enlarged glands. NEUROLOGICAL: -altered mental status or loss of consciousness, -headache, - neurologic symptoms PSYCHIATRIC: -anxiety, -depression. ALL OTHER SYSTEMS REVIEWED AND NEGATIVE. Physical Exam - Vital signs Vitals: Temp Pulse Resp BP Pulse Ox 98.6 F 86 16 116/71 98 06/03/18 13:49 06/03/18 13:49 06/03/18 13:49 06/03/18 13:49 06/03/18 13:49 - Notes Notes: PHYSICAL EXAMINATION: GENERAL: Well-appearing, well-nourished and in no acute distress. HEAD: Atraumatic, normocephalic. EYES: Pupils equal round and reactive to light, extraocular movements intact, sclera anicteric, conjunctiva are normal. ENT: nares patent, oropharynx clear without exudates. Moist mucous membranes. NECK: Normal range of motion, supple without lymphadenopathy LUNGS: Breath sounds clear to auscultation bilaterally and equal. No wheezes rales or rhonchi. HEART: Regular rate and rhythm without murmurs ABDOMEN: Well-healed scar without erythema or drainage. Soft, nontender, normoactive bowel sounds. No guarding, no rebound. No masses appreciated. EXTREMITIES: Normal range of motion, no pitting or edema. No cyanosis. NEUROLOGICAL: Cranial nerves grossly intact. Normal speech, normal gait. Normal sensory and motor exams. PSYCH: Normal mood, normal affect. SKIN: Warm, Dry, normal turgor, no rashes or lesions noted. Course - Re-evaluation Re-evalutation: Patient without evidence of RPA, IMAGE EDITOR or epiglottitis at this time. She has 0 Centor criteria for strep. Her scar does not appear infected and she has already had an ultrasound performed at [facility] to assess for a foreign body. She has an appointment in 5 days at the health department for further evaluation of this chronic lower abdominal pain and further workup of possible cervical cancer. Patient admits that she is only in the ER for a work note. - Vital Signs Vital signs: Temp Pulse Resp BP Pulse Ox 98.6 F 86 16 116/71 98 06/03/18 13:49 06/03/18 13:49 06/03/18 13:49 06/03/18 13:49 06/03/18 13:49 Discharge - Discharge Clinical Impression: Pharyngitis Qualifiers: Pharyngitis/tonsillitis etiology: unspecified etiology Qualified Code(s): J02.9 - Acute pharyngitis, unspecified Condition: Stable Disposition: HOME, SELF-CARE Additional Instructions: SORE THROAT: Sore throats may be caused by viruses, bacteria, or fungi. Most are due to a virus, and must get better on their own. Bacterial sore throats, particularly those due to "strep," need treatment with antibiotics. If an antibiotic is prescribed, be sure to take the medication for a full 10 days. Failure to take the antibiotic can result in complications such as rheumatic fever. Sometimes, an injection of antibiotics is given instead of pills or liquid. This single "shot" is equal in effectiveness to the oral medication. To relieve symptoms, take acetaminophen for pain. Sip clear liquids frequently, or eat popsicles or ice chips. Anesthetic sprays or lozenges may help. Make sure the air in the room is not too dry. Avoid using decongestants or antihistamines. Call the doctor if there is no improvement in two days, or if you have difficulty breathing, increasing throat pain, high fever, rash, or frequent vomiting. FOLLOW-UP CARE: If you have been referred to a physician for follow-up care, call the physician s office for an appointment as you were instructed or within the next two days. If you experience worsening or a significant change in your symptoms, notify the physician immediately or return to the Emergency Department at any time for re-evaluation. Forms: Return to Work [facility] - Follow up as needed
== END 2018-06-03 14:28 | disposition home or self-care (01) ==
LOC: ER 13:34
DX: J02.9 Acute pharyngitis, unspecified (principal); R05 Cough; Z88.2 Allergy status to sulfonamides; F17.200 Nicotine dependence, unspecified, uncomplicated; Z87.442 Personal history of urinary calculi
CPT/HCPCS: 99282

== ENCOUNTER 2018-07-06 10:03 | Emergency (ER) | payer SELFPAY ==
[2018-07-06 10:20] VITALS: BP 129/86
== END 2018-07-06 12:24 | disposition left against medical advice (07) ==
LOC: ER 10:03
DX: Z53.21 Procedure and treatment not carried out due to patient leaving prior to being seen by health care provider (principal)

== ENCOUNTER 2018-08-28 10:17 | Emergency (ER) | payer SELFPAY ==
[2018-08-28] MEDS ORDERED: MORPHINE SULFATE 10 MG/ML INJ IV ONE (10:52)
[2018-08-28] MEDS ORDERED: ONDANSETRON HCL INJ/PF 4 MG/2 ML SDV IV ONE (10:53)
--- NOTE | 2018-08-28 10:54 | ER Document Report ---
ED Medical Screen (RME) - General Chief Complaint: Abdominal Pain Stated Complaint: ABDOMINAL PAIN Time Seen by Provider: 08/28/18 10:50 Mode of Arrival: Ambulatory Information source: Patient Notes: 28-year-old female presents with complaint of nausea, vomiting, diarrhea and lower abdominal pain that started 1 day prior to arrival. Last menstrual period July 28, 2018 I have greeted and performed a rapid initial assessment of this patient. A comprehensive ED assessment and evaluation of the patient, analysis of test results and completion of medical decision making process we will be contacted by additional ED providers. PHYSICAL EXAMINATION: Vital signs reviewed-within normal limits GENERAL: Mild distress, crying, holding her abdomen LUNGS: No respiratory distress Musculoskeletal: Normal range of motion NEUROLOGICAL: Normal speech, normal gait. PSYCH: Normal mood, normal affect. SKIN: Warm, Dry, normal turgor, no rashes or lesions noted. TRAVEL OUTSIDE OF THE [place] IN LAST 30 DAYS: No - HPI Onset: Yesterday Onset/Duration: Gradual, Persistent, Worse Quality of pain: Throbbing Severity: Mild Associated Symptoms: Diarrhea, Nausea, Vomiting Exacerbated by: Denies Relieved by: Denies Similar symptoms previously: No Recently seen / treated by doctor: No - Related Data Smoking: Cigarettes Frequency of alcohol use: None Drug Abuse: None Allergies/Adverse Reactions: Sulfa (Sulfonamide Antibiotics) Allergy (Verified 08/28/18 10:22) Hives Past Medical History - Social History Chew tobacco use (# tins/day): No Frequency of alcohol use: None Drug Abuse: None Family history: None - Past Medical History Cardiac Medical History: Denies: Hx Hypertension, Hx Pulmonary Embolism, Hx Heart Murmur Pulmonary Medical History: Denies: Hx Asthma, Hx Sleep Apnea, Hx Tuberculosis Neurological Medical History: Denies: Hx Cerebrovascular Accident, Hx Seizures Endocrine Medical History: Denies: Hx Hyperthyroidism, Hx Hypothyroidism Renal/ Medical History: Reports: Hx Kidney Stones - no stones, but cyst on kidney. Denies: Hx Ovarian Cysts, Hx Peritoneal Dialysis, Hx Pelvic Inflammatory Disease Malignancy Medical History: Denies: Hx Breast Cancer, Hx Cervical Cancer, Hx Ovarian Cancer GI Medical History: Reports: Hx Hepatitis - Hepatitis C. Denies: Hx Gastroesophageal Reflux Disease, Hx Hiatal Hernia, Hx Ulcer Musculoskeltal Medical History: Denies Hx Fibromyalgia Psychiatric Medical History: Reports: Hx Anxiety, Hx Depression Denies: Hx Bipolar Disorder, Hx Post Traumatic Stress Disorder, Hx Schizophrenia Traumatic Medical History: Denies: Hx Fractures Infectious Medical History: Reports: Hx Hepatitis - Hepatitis C. Denies: Hx HIV Past Surgical History: Reports: Hx Section - x3. Denies: Hx Appendectomy, Hx Bowel Surgery, Hx Cholecystectomy, Hx Coronary Artery Bypass Graft, Hx Gastric Bypass Surgery, Hx Herniorrhaphy, Hx Hysterectomy, Hx Mastectomy, Hx Pacemaker, Hx Tonsillectomy, Hx Tubal Ligation - Immunizations Hx Diphtheria, Pertussis, Tetanus Vaccination: No - Patient unsure of last tdap History of Influenza Vaccine for 08/2017 - 01/2018 Season: Refused Physical Exam - Vital signs Vitals: Temp Pulse Resp BP Pulse Ox 98.0 F 98 16 110/66 100 08/28/18 10:36 08/28/18 10:36 08/28/18 10:36 08/28/18 10:36 08/28/18 10:36 Course - Vital Signs Vital signs: Temp Pulse Resp BP Pulse Ox 98.0 F 98 16 110/66 100 08/28/18 10:36 08/28/18 10:36 08/28/18 10:36 08/28/18 10:36 08/28/18 10:36
[2018-08-28 12:16] LABS: APPEARANCE,URINE CLEAR; BILIRUBIN,URINE NEGATIVE (NEGATIVE); COLOR,URINE COLORLESS; GLUCOSE, URINE NEGATIVE (NEGATIVE); KETONES,URINE NEGATIVE (NEGATIVE); LEUKOCYTE ESTERASE,URINE MODERATE (NEGATIVE); NITRITE,URINE NEGATIVE (NEGATIVE); PROTEIN,URINE NEGATIVE (NEGATIVE); URINE SPECIFIC GRAVITY 1.001; UROBILINOGEN,URINE NEGATIVE mg/dL (<2.0)
[2018-08-28 12:21] LABS: ABSOLUTE BASOPHILS # (AUTO) 0.1 10^3/uL (0.0-0.2); ABSOLUTE LYMPHOCYTES (AUTO) 1.5 10^3/uL (0.5-4.7); ABSOLUTE MONOCYTES (AUTO) 0.6 10^3/uL (0.1-1.4); ABSOLUTE NEUT (AUTO) 11.3 10^3/uL (1.7-8.2); BASOPHILS % (AUTO) 0.4 % (0-2); EOSINOPHILS % (AUTO) 0.3 % (0-6); HEMOGLOBIN 13.7 g/dL (12.0-15.5); LYMPHOCYTES % (AUTO) 10.8 % (13-45); MEAN CORPUSCULAR HEMOGLOBIN 25.9 pg (27.0-33.4); MEAN CORPUSCULAR HGB CONC 32.7 g/dL (32.0-36.0); MEAN CORPUSCULAR VOLUME 79 fl (80-97); MONOCYTES % (AUTO) 4.8 % (3-13); PLATELET COUNT 294 10^3/uL (150-450); RED CELL DISTRIBUTION WIDTH 16.9 % (11.5-14.0); SEGMENTED NEUTROPHILS % (AUTO) 83.7 % (42-78); TOTAL CELLS COUNTED % (AUTO) 100 %; WHITE BLOOD COUNT 13.5 10^3/uL (4.0-10.5)
[2018-08-28 12:35] LABS: ALANINE AMINOTRANSFERASE 111 U/L (9-52); ALBUMIN 5.3 g/dL (3.5-5.0); ALKALINE PHOSPHATASE 61 U/L (38-126); ANION GAP 17 (5-19); ASPARTATE AMINO TRANSFERASE 99 U/L (14-36); BILIRUBIN,DIRECT 0.4 mg/dL (0.0-0.4); BILIRUBIN,TOTAL 1.1 mg/dL (0.2-1.3); BLOOD UREA NITROGEN 12 mg/dL (7-20); CALCIUM 10.7 mg/dL (8.4-10.2); CARBON DIOXIDE 20 mmol/L (22-30); CHLORIDE 101 mmol/L (98-107); GLUCOSE 81 mg/dL (75-110); LIPASE 79.5 U/L (23-300); POTASSIUM 4.5 mmol/L (3.6-5.0); SODIUM 137.7 mmol/L (137-145); TOTAL PROTEIN 9.4 g/dL (6.3-8.2)
[2018-08-28 12:38] LABS: URINE AMPHETAMINES SCREEN NEGATIVE; URINE BARBITURATES SCREEN NEGATIVE; URINE BENZODIAZEPINES SCREEN NEGATIVE; URINE COCAINE SCREEN NEGATIVE; URINE MARIJUANA (THC) SCREEN UNCONFIRMED POSITIVE; URINE METHADONE SCREEN NEGATIVE; URINE PHENCYCLIDINE SCREEN NEGATIVE
[2018-08-28] MEDS ORDERED: NORMAL SALINE 1000 ML 1,000 ML IV ONE (14:07)
--- NOTE | 2018-08-28 14:08 | ER Document Report ---
ED GI/ - General Chief Complaint: Abdominal Pain Stated Complaint: ABDOMINAL PAIN Time Seen by Provider: 08/28/18 10:50 Mode of Arrival: Ambulatory Notes: Patient is a 28-year-old female who presents with chief complaint of nausea, vomiting and diarrhea. Patient reports that yesterday she started having some low abdominal cramping but it is time for her to have her period. Patient states that this morning she had to go to probation to have a drug test done so she drank 3 L of water and then began vomiting. Patient was concerned and she thought that may be there was a tinge of blood in the vomit. Patient reports that drinking water always makes her have nausea. Current treatment with abx for urinary tract infection. Patient denies any abdominal pain or fever. TRAVEL OUTSIDE OF THE [place] IN LAST 30 DAYS: No - Related Data Allergies/Adverse Reactions: Sulfa (Sulfonamide Antibiotics) Allergy (Verified 08/28/18 10:53) Hives Past Medical History - General Information source: Patient - Social History Smoking Status: Current Every Day Smoker Chew tobacco use (# tins/day): No Frequency of alcohol use: None Drug Abuse: None Family History: Other - Cancer and hypertension Patient has suicidal ideation: No Patient has homicidal ideation: No - Past Medical History Cardiac Medical History: Denies: Hx Hypertension, Hx Pulmonary Embolism, Hx Heart Murmur Pulmonary Medical History: Denies: Hx Asthma, Hx Sleep Apnea, Hx Tuberculosis Neurological Medical History: Denies: Hx Cerebrovascular Accident, Hx Seizures Endocrine Medical History: Denies: Hx Hyperthyroidism, Hx Hypothyroidism Renal/ Medical History: Reports: Hx Kidney Stones - no stones, but cyst on kidney. Denies: Hx Ovarian Cysts, Hx Peritoneal Dialysis, Hx Pelvic Inflammatory Disease Malignancy Medical History: Denies: Hx Breast Cancer, Hx Cervical Cancer, Hx Ovarian Cancer GI Medical History: Reports: Hx Hepatitis - Hepatitis C. Denies: Hx Gastroesophageal Reflux Disease, Hx Hiatal Hernia, Hx Ulcer Musculoskeletal Medical History: Denies Hx Fibromyalgia Psychiatric Medical History: Reports: Hx Anxiety, Hx Depression Denies: Hx Bipolar Disorder, Hx Post Traumatic Stress Disorder, Hx Schizophrenia Traumatic Medical History: Denies: Hx Fractures Infectious Medical History: Reports: Hx Hepatitis - Hepatitis C. Denies: Hx HIV Past Surgical History: Reports: Hx Section - x3. Denies: Hx Appendectomy, Hx Bowel Surgery, Hx Cholecystectomy, Hx Coronary Artery Bypass Graft, Hx Gastric Bypass Surgery, Hx Herniorrhaphy, Hx Hysterectomy, Hx Mastectomy, Hx Pacemaker, Hx Tonsillectomy, Hx Tubal Ligation - Immunizations Hx Diphtheria, Pertussis, Tetanus Vaccination: No - Patient unsure of last tdap Physical Exam - Vital signs Vitals: Temp Pulse Resp BP Pulse Ox 98.0 F 98 16 110/66 100 08/28/18 10:36 08/28/18 10:36 08/28/18 10:36 08/28/18 10:36 08/28/18 10:36 - Notes Notes: PHYSICAL EXAMINATION: GENERAL: Well-appearing, well-nourished and in no acute distress. HEAD: Atraumatic, normocephalic. EYES: Pupils equal round and reactive to light, extraocular movements intact, conjunctiva are normal. ENT: Nares patent, oropharynx clear without exudates. Moist mucous membranes. NECK: Normal range of motion, supple without lymphadenopathy LUNGS: Breath sounds clear to auscultation bilaterally and equal. No wheezes rales or rhonchi. HEART: Regular rate and rhythm without murmurs ABDOMEN: Soft, nontender, nondistended abdomen. No guarding, no rebound. No masses appreciated. Female : No CVA tenderness Musculoskeletal: Normal range of motion, no pitting or edema. No cyanosis. NEUROLOGICAL: Cranial nerves grossly intact. Normal speech, normal gait. Normal sensory, motor exams PSYCH: Normal mood, normal affect. SKIN: Warm, Dry, normal turgor, no rashes or lesions noted. Course - Re-evaluation Re-evalutation: CBC with a white blood count 13.5 with a left shift. Elevated AST and ALT. Urinalysis with moderate leukocyte esterase. Patient has not vomited since arrival, states she feels much better after receiving IV fluids. I did attempt to send patient for a right upper quadrant ultrasound which she declined stating that she has to leave to get to probation. She will continue taking her antibiotics for urinary tract infection and will return to the emergency department with strict ED return precautions. - Vital Signs Vital signs: Temp Pulse Resp BP Pulse Ox 97.7 F 81 16 99/58 L 100 08/28/18 15:13 08/28/18 15:13 08/28/18 10:36 08/28/18 15:13 08/28/18 15:13 - Laboratory Result Diagrams: 08/28/18 12:10 08/28/18 12:10 Laboratory results interpreted by me: 08/28/18 08/28/18 08/28/18 11:30 12:10 12:10 WBC 13.5 H RBC 5.30 H MCV 79 L MCH 25.9 L RDW 16.9 H Seg Neutrophils % 83.7 H Lymphocytes % 10.8 L Absolute Neutrophils 11.3 H Carbon Dioxide 20 L Calcium 10.7 H AST 99 H ALT 111 H Total Protein 9.4 H Albumin 5.3 H Ur Leukocyte Esterase MODERATE H Discharge - Discharge Clinical Impression: Elevated liver function tests Nausea & vomiting Qualifiers: Vomiting type: unspecified Vomiting Intractability: non-intractable Qualified Code(s): R11.2 - Nausea with vomiting, unspecified Diarrhea Qualifiers: Diarrhea type: unspecified type Qualified Code(s): R19.7 - Diarrhea, unspecified Condition: Stable Disposition: HOME, SELF-CARE Additional Instructions: VOMITING: Vomiting (or nausea without vomiting) can be caused by many other different problems. It can mean that something's wrong with the stomach, such as ulcers or inflammation or the intestinal tract, such as appendicitis. But it can also be a symptom of a problem that has nothing to do with the stomach or intestines. Vomiting is common with severe headaches, earaches, tonsillitis, and kidney infections, etc. We see it with pneumonia or heart attacks. Drugs can cause nausea and vomiting. Many abdominal problems cause vomiting; for example, gallstones, kidney stones, pancreatitis, and intestinal obstruction ( blocked bowels). In most cases, curing the vomiting depends on fixing the problem that caused it. For temporary relief, we may use an anti-nausea medicine. For home use, we can prescribe suppositories, chewable pills, pills that dissolve in the mouth, or liquid anti-nausea drugs. If the vomiting seems to be caused by a problem in the stomach, acid-suppressing drugs may be prescribed as well. It's important to avoid dehydration. Sip small amounts of clear liquids ( soft drinks, tea, broth, etc) . Try to take fluids frequently even if you are vomiting to prevent dehydration. Take increasing amounts of fluid and when liquids are being consumed successfully, advance to small amounts of bland food (toast, soups, mashed potatoes, etc.) until you are able to resume a regular diet. Avoid aspirin, tobacco, and alcohol. If the vomiting worsens, if the problem that's making you vomit worsens, or if there's evidence of bleeding in the stomach (such as black, tarry stool, or bloody or black vomit), you should return immediately. Also, return if abdominal pain worsens or becomes localized to one area or you develop high fever. Call your doctor if you aren't improved in 24 hours. DIARRHEA, NON-SPECIFIC: Diarrhea means frequent, watery stools. There are many causes. Any problem that keeps the intestinal tract from absorbing water from the stool can lead to diarrhea. A sudden new diarrhea problem is usually caused by a virus, food sensitivity, toxic bacteria, or drugs. In this case, we expect the problem to go away soon. Testing is done only if you seem seriously ill from the diarrhea. If you have chronic diarrhea, or diarrhea that keeps coming back, we need to find out why. Chronic diarrhea can be due to inflammation of the bowels such as Crohn's disease or ulcerative colitis, food sensitivity such as intolerance to lactose or wheat protein, irritable bowel syndrome, and other problems. If your diarrhea is a significant problem but it's not clear why you have it, we' ll refer you to a specialist for further testing. During an episode of diarrhea, drink small amounts (two to six ounces) of clear liquids (soft drinks, sport drinks, herb teas, broth, etc). Take fluids frequently to prevent dehydration. It's usually not a problem to take mild anti- diarrhea medication such as Kaopectate or Pepto-Bismol. As the diarrhea eases, advance to small amounts of bland food (mashed potato, toast) for 24 hours. Call the physician if blood appears in your vomit or stool, if vomiting lasts longer than 24 hours, if the abdominal pain worsens or becomes localized to one area, if you develop high fever, or if you become lightheaded and weak. VIRAL SYNDROME: The physician has diagnosed a viral infection. Viruses not only cause "colds," but can cause many different symptoms including generalized aching, fever, headache, cough, diarrhea, nausea, vomiting, and fatigue. The treatment, for the most part, is simply relief of symptoms. This means that antibiotics are usually not given. Rest, fluids, pain medications and, occasionally, medication for the specific symptoms that are most bothersome will be prescribed. Use good handwashing to avoid passing the virus to others. Shared toys should be cleaned with disinfectant. Clean the toilets, sinks, and counter surfaces in bathrooms. Launder clothing in hot water. Contact the physician if you develop any new or unusual symptoms such as severe headache, stiff neck, high fever, chest pain, productive cough, or shortness of breath. You should be rechecked if you don't see marked improvement within seven to 10 days. INTRAVENOUS (I V) FLUIDS: As part of your care today, you received intravenous (IV) fluids. IV fluids are administered to patients who are dehydrated or to those who have certain chemical (electrolyte) abnormalities that need correcting. ANTINAUSEA MEDICATION: You have been given a medication to suppress nausea and vomiting. This type of medication can be given as a shot, pill, or suppository. It will usually last for many hours. Pills and shots usually last six to eight hours. For the typical illness, only one or two doses of the medication may be necessary. Mild lightheadedness may occur. This type of medicine can cause drowsiness. Do not drive or operate dangerous machinery while under its influence. Do not mix with alcohol. See your doctor at once if you have muscle spasms or tightness, or uncontrollable motions (particularly of the neck, mouth, or jaw). Persistent vomiting or severe lightheadedness should also be evaluated by the physician. FOLLOW-UP CARE: If you have been referred to a physician for follow-up care, call the physician s office for an appointment as you were instructed or within the next two days. If you experience worsening or a significant change in your symptoms, notify the physician immediately or return to the Emergency Department at any time for re-evaluation. Continue to take your antibiotics as prescribed. Please use the Zofran as needed for nausea. Drink plenty of fluids over the next several days. Follow- up with your primary care provider in the next 2-3 days for a follow-up, return to the emergency department sooner if you experience worsening abdominal pain, nausea, vomiting, diarrhea or any other symptom that is concerning to you. Prescriptions: Ondansetron [Zofran Odt 4 mg Tablet] 1 - 2 tab PO Q4H PRN #15 tab.rapdis PRN Reason: For Nausea/Vomiting
[2018-08-28] MEDS ORDERED: ONDANSETRON ODT 4 MG TAB (6 TAB/ER DISP) PO PRN (14:20)
[2018-08-28 15:14] VITALS: BP 99/58
== END 2018-08-28 15:30 | disposition home or self-care (01) ==
LOC: ER 10:17
DX: R79.89 Other specified abnormal findings of blood chemistry (principal); R11.2 Nausea with vomiting, unspecified; R19.7 Diarrhea, unspecified; R10.9 Unspecified abdominal pain; F17.200 Nicotine dependence, unspecified, uncomplicated; Z88.2 Allergy status to sulfonamides; Z87.442 Personal history of urinary calculi
CPT/HCPCS: 99284; 96361; 96374; 96375; 36415; 83690; 85025; 81025; 80053; 81001; 80307; J2270; J2405